=== PATIENT | male | born 1940 | race Caucasian/White ===

== ENCOUNTER → 2020-05-13 13:56 | Outpatient (CLI) | payer MEDICARE, SELFPAY ==
--- NOTE | ~2020-05-13 | XR_ITS ---
EXAMINATION: XR abdomen/kub 1V INDICATION: Calculus of the kidney TECHNIQUE: Supine views of the abdomen were obtained on 2 radiographs. COMPARISON: 06/28/2019 FINDINGS: No definite urolithiasis is identified. There are phleboliths of the pelvis. The bowel gas pattern is normal. Cholecystectomy clips are noted in the right upper quadrant. Surgical staple lines are noted in the sigmoid colon and rectum as well as the right upper quadrant. There are changes of mesh ventral hernia repair. Severe lumbar spondylosis is noted. There are airspace opacities of the v isualized lung bases. IMPRESSION: 1. No definite urolithiasis identified. 2. Bibasilar airspace opacities, consistent with atelectasis versus pneumonia. Reviewed, dictated and finalized at location A. IER PACKER
== END ==
PROVIDERS: PCP Internal Medicine; Visit Provider Internal Medicine Nephrology
DX: N20.0 Calculus of kidney (principal); R92.8 Other abnormal and inconclusive findings on diagnostic imaging of breast
CPT/HCPCS: 74018

== ENCOUNTER 2021-10-18 08:57 | Outpatient (CLI) | payer MEDICARE, SELFPAY ==
--- NOTE | ~2021-10-18 | XR_ITS ---
EXAMINATION: XR chest 2V Exam Date/Time: 10/18/2021 9:10 CDT CLINICAL HISTORY: calculus of kidney Comparison: 04/22/2017. RESULT: Lines, tubes, and devices: Partially visualized uncomplicated appearing right shoulder arthroplasty. Cholecystectomy clips. Lungs and pleura: Senescent changes. Flattened diaphragms as can be seen with emphysema. Cardiomediastinal silhouette: Stable cardiomediastinal silhouette. Other: No acute osseous or upper abdominal finding. IMPRESSION: No acute cardiopulmonary process Reviewed, dictated and finalized at location K.
--- NOTE | ~2021-10-18 | XR_ITS ---
EXAM: XR abdomen/kub 1V HISTORY: calculus of kidney COMPARISON: 05/13/2020. FINDINGS: Normal bowel gas pattern. No organomegaly. Cholecystectomy clips. Anastomotic sutures over the right colon, sigmoid, and rectum. Soft tissue anchors project over the mid and lower abdomen pel willie phleboliths. Degenerative lumbar and hip changes, otherwise the regional bones and soft tissues n ormal for age. IMPRESSION: No radiographic evidence of nephrolithiasis. Reviewed, dictated and finalized at location K.
== END 2021-10-18 08:58 | disposition home or self-care (01) ==
PROVIDERS: PCP Internal Medicine; Visit Provider Internal Medicine Nephrology
DX: N20.0 Calculus of kidney (principal); R09.89 Other specified symptoms and signs involving the circulatory and respiratory systems
CPT/HCPCS: 71046; 74018

== ENCOUNTER → 2021-10-21 10:18 | Outpatient (REF) | payer MEDICARE, SELFPAY | LOC: ANHLAB 10:18 | PROVIDERS: PCP Internal Medicine; Visit Provider Nurse Practitioner | DX: L57.0 Actinic keratosis (principal) | CPT/HCPCS: 88305 ==

== ENCOUNTER 2022-12-30 08:29 | Emergency (ER) | payer MEDICARE, SELFPAY ==
--- NOTE | 2022-12-30 08:33 | ED.SKABFB ---
HPI - Skin/Abscess/Foreign Bdy General Chief complaint: Skin/Abscess/Foreign Body Stated complaint: SORE ON LEFT ANKLE Time Seen by Provider: 12/30/22 08:33 Source: patient Mode of arrival: ambulatory Limitations: no limitations History of Present Illness HPI narrative: Angel is an 82-year-old male patient presenting to the clinic today with complaints of a sore/wound to his left ankle x2 months. He reports the sore does not seem to want to heal. Has been applying triple antibiotic ointment to it. He wears shoes without socks and it appears that his shoe is rubbing on his ankle where the sore is located Related Data Home Medications Medication Instructions Recorded Confirmed gabapentin 300 mg capsule 300 mg PO TID 04/17/19 12/30/22 allopurinol 100 mg tablet 100 mg PO DAILY 04/21/19 12/30/22 brinzolamide 1 %-brimonidine 0.2 % 1 drop ophthalmic (eye) TID 04/21/19 12/30/22 eye drops,suspension (Simbrinza) carbidopa 25 mg-levodopa 250 mg 1 tablet PO QID 04/21/19 12/30/22 tablet finasteride 5 mg tablet 5 mg PO DAILY 04/21/19 12/30/22 lactobacillus combination no.8 3 3,000 mmu cells PO DAILY 04/21/19 12/30/22 billion cell capsule (Adult Probiotic) mirtazapine 15 mg tablet 15 mg PO DAILY 04/21/19 12/30/22 multivitamin (Multiple Vitamins 1 tablet PO DAILY 04/21/19 12/30/22 tablet) omega-3 fatty acids 1,000 mg 1,000 mg PO DAILY 04/21/19 12/30/22 capsule (Fish Oil Concentrate) travoprost 0.004 % eye drops 1 drop ophthalmic (eye) QPM 04/21/19 12/30/22 (Travatan Z) Allergies Allergy/AdvReac Type Severity Reaction Status Date / Time Penicillins Allergy Unknown Rash Verified 12/30/22 08:46 Review of Systems Review of Systems: Pertinent positives per HPI. Patient denies any fever, chills, rash, headache, visual changes, dizziness, cough, runny nose, sore throat, shortness of breath, chest pain, palpitations, nausea, vomiting, diarrhea, constipation, abdominal pain, or any urinary issues. PMFSH Past Medical History Medical History Anemia Arthritis BPH (benign prostatic hyperplasia) Degenerative joint disease of knee Eczema HLD (hyperlipidemia) HTN (hypertension) Kidney stones Parkinsons Psoriasis Right knee pain SBO (small bowel obstruction) Skin cancer Sleep disorder Ulcerative colitis Surgical History Surgical History History of appendectomy History of colon resection History of lithotripsy Family History Family History Mother Hypertension Grandparent Acute myocardial infarction, Onset Age: 90 Cerebrovascular accident, Onset Age: 85 Carcinoma of colon Father Family history unknown, Onset Age: 91 Social History Social History Smoking status: Never smoker Second hand tobacco smoke exposure: No Alcohol intake: never Substance use: never Substance use type: does not use Lack of Transportation: No Lack of Food: Never True Current Housing: I Have Housing Concerned About Future Housing: No Difficulty Paying Gas/Electric Bills: No Difficulty Paying for Meds: No Currently Unemployed: No Education: High School Diploma/GED Difficulty w/ Childcare or Family Care: No Occupation/Education: retired Gender identity (if verbalized by the patient): Male Comments At the time of my signature, I reviewed and agree with the nursing past medical, surgical, social, and family history. There is no relevant family history pertinent to the patient complaint. Exam Narrative: General: Well-developed, well nourished, in no apparent distress Head: Normocephalic, atraumatic. Cardio: Regular rate and rhythm, s1 and s2 normal, no murmur appreciated. Resp: Clear to auscultation bilaterally, no rhonchi
[2022-12-30 08:38] VITALS: BP 137/82; PULSE 65; RESP 20; TEMP 36.6; O2SAT 100
== END 2022-12-30 08:53 | disposition home or self-care (01) ==
PROVIDERS: Emergency Provider Nurse Practitioner Family; PCP Family Medicine
DX: S91.002A Unspecified open wound, left ankle, initial encounter (principal); X58.XXXA Exposure to other specified factors, initial encounter; M19.90 Unspecified osteoarthritis, unspecified site; N40.0 Benign prostatic hyperplasia without lower urinary tract symptoms; E78.5 Hyperlipidemia, unspecified; I10 Essential (primary) hypertension; G20 Parkinson's disease; L40.9 Psoriasis, unspecified; Z85.828 Personal history of other malignant neoplasm of skin
CPT/HCPCS: 99213; G0463

== ENCOUNTER 2023-05-20 16:16 | Outpatient (CLI) | payer MEDICARE, SELFPAY ==
--- NOTE | ~2023-05-20 | XR_ITS ---
EXAMINATION: XR abdomen/kub 1V DATE: 05/20/2023 16:43 INDICATION: Nephrolithiasis TECHNIQUE: A supine view of the abdomen on 2 radiographs was obtained. COMPARISON: 10/18/2021 FINDINGS: There is some gas scattered throughout the colon. No dilated loops of gas-filled bowel to suggest obs truction. Postoperative changes including cholecystectomy clips in right upper quadrant, anastomotic suture lines in the right lower quadrant and pelvis and multiple metallic coils projecting over the l ower abdomen and upper pelvis consistent with prior ventral hernia mesh repair. A few unchanged phleb oliths in the pelvis. Splenic artery calcifications in the left upper quadrant No other suspicious ca lcifications to suggest nephrolithiasis. Opacities in the bilateral lower lung zones, left greater th an right which could represent atelectasis, pneumonia, pulmonary edema or some combination thereof. S evere lumbar spondylosis. IMPRESSION: 1. No evident urolithiasis. 2. Opacities at the bilateral lower lung zones, left greater than right which could represent atelect asis, pneumonia, pulmonary edema or some combination thereof. Reviewed, dictated and finalized at location A. E CIRCUIT OPERATOR IMPRESSION: 1. No evident urolithiasis. 2. Opacities at the bilateral lower lung zones, left greater than right which c ould represent atelectasis, pneumonia, pulmonary edema or some combination ther eof.
== END 2023-05-20 16:17 | disposition home or self-care (01) ==
PROVIDERS: PCP Family Medicine; Visit Provider Internal Medicine Nephrology
DX: N20.0 Calculus of kidney (principal); R91.8 Other nonspecific abnormal finding of lung field
CPT/HCPCS: 74018

== ENCOUNTER 2023-05-21 14:05 | Outpatient (CLI) | payer MEDICARE, SELFPAY ==
--- NOTE | ~2023-05-21 | XR_ITS ---
EXAMINATION: XR chest 2V DATE: 05/21/2023 14:21 INDICATION: Abnormal abdominal radiographs TECHNIQUE: PA and lateral views of the chest are obtained. COMPARISON: 05/20/2023 FINDINGS: Bibasilar airspace opacities, left greater than right, persist without significant change. No pleural effusion or pneumothorax. The cardiomediastinal silhouette is normal. There is severe thor acic spondylosis. There are changes of right total shoulder arthroplasty. IMPRESSION: 1. Bibasilar airspace opacities, left greater than right, consistent with atelectasis versus pneumoni a. Reviewed, dictated and finalized at location B. OTYPE MACHINE OPERATOR IMPRESSION: 1. Bibasilar airspace opacities, left greater than right, consistent with atele ctasis versus pneumonia.
== END 2023-05-21 14:06 | disposition home or self-care (01) ==
PROVIDERS: PCP Family Medicine; Visit Provider Internal Medicine Nephrology
DX: R93.5 Abnormal findings on diagnostic imaging of other abdominal regions, including retroperitoneum (principal)
CPT/HCPCS: 71046

== ENCOUNTER 2023-06-11 14:35 | Outpatient (CLI) | payer MEDICARE, SELFPAY ==
--- NOTE | ~2023-06-11 | CT_ITS ---
EXAMINATION:CT diagnostic chest wo con DATE: 06/11/2023 14:54 INDICATION: Other specified symptoms and signs involving the lungs. Fluid in the lungs. TECHNIQUE: Computed tomography (CT) of the chest was performed without intravenous contrast. Automate d exposure control and iterative reconstruction technique were employed. The dose-length product (DLP ) was 140.37 mGy-cm. COMPARISON: CT abdomen and pelvis 03/27/2018, chest 2 views 05/21/2023 FINDINGS: There is widespread peripheral septal thickening in the lungs associated with relatively mi ld groundglass opacities. There are areas of honeycombing bilaterally. There is bronchiectasis in the lungs with an inferior predominance. No pleural effusion. The heart size is normal. There are webber ry artery calcifications. No pericardial effusion. Aortic atherosclerosis is noted. There are changes of cholecystectomy. There is chronic moderate intrahepatic biliary duct dilatation. There is a 13 mm cyst in right kidney. There is severe thoracic spondylosis. There is thoracic kyphosis and dextrosco liosis. There is a total right shoulder arthroplasty. IMPRESSION: 1. Chronic interstitial lung disease in a pattern of usual interstitial pneumonia (UIP). Reviewed, dictated and finalized at location E. GER TRACK IMPRESSION: 1. Chronic interstitial lung disease in a pattern of usual interstitial pneumon ia (UIP).
== END 2023-06-11 14:36 | disposition home or self-care (01) ==
PROVIDERS: PCP Family Medicine; Visit Provider Family Medicine
DX: R09.89 Other specified symptoms and signs involving the circulatory and respiratory systems (principal); G20.A1 Parkinson's disease without dyskinesia, without mention of fluctuations
CPT/HCPCS: 71250

== ENCOUNTER 2023-06-29 09:58 | Outpatient (CLI) | payer MEDICARE, SELFPAY ==
[2023-06-29 11:58] LABS: Rheumatoid Factor < 12.0 IU/ML (<12)
--- NOTE | 2023-06-29 15:42 | WPDPFTINT ---
PFT Procedure Performed PFT Procedure Performed Spirometry with Pre/Post Bronchodilator Plethysmography (Lung Vol) Diffusing Cap (DLCO) Flow Vol Loop PFT Interpretation Lung volumes were measured with the body plethysmography method. The diminished total lung capacity is indicative of mild restrictive respiratory disease. Spirometry showed normal expiratory flow rates and a normal FEV1 to FVC ratio of 82%. Following administration of a bronchodilator there was no significant increase in expiratory flow rates. Lung diffusion capacity is moderately reduced at 42% predicted. The flow-volume loop is unremarkable. Impression: Mild restrictive respiratory disease. Moderately reduced lung diffusion capacity.
--- NOTE | 2023-06-29 16:08 | WPDSIXMINUTE ---
Six Minute Walk Procedure Procedure Performed Pulmonary Stress Test (6 min walk) Six Minute Walk Six Minute Walk: This 6 minute walk test was carried out with the patient breathing ambient air. The baseline pre walk oxyhemoglobin saturation was 95%. The patient walked 335 m with no stops during testing. During the walk the oxyhemoglobin saturation remained in the range of 90% to 95%. Impression: No evidence of oxyhemoglobin desaturation on this testing.
[2023-07-02 09:23] LABS: Myeloperoxidase Ab <1.0 AI (<1.0)
[2023-07-04 10:04] LABS: Anti Cyclic Citrullinated Pept <16 Units (<20)
[2023-07-08 20:48] LABS: JO-1 AB <11 SI (<11); MI-2 Alpha Ab <11 SI (<11); MI-2 Beta Ab <11 SI (<11); NXP-2 AB <11 SI (<11); TIF1 Gamma Ab <11 SI (<11)
== END 2023-06-29 09:59 | disposition home or self-care (01) ==
PROVIDERS: PCP Family Medicine; Visit Provider Internal Medicine Pulmonary Disease
DX: J61 Pneumoconiosis due to asbestos and other mineral fibers (principal); J84.9 Interstitial pulmonary disease, unspecified
CPT/HCPCS: 36415; 84182; 86036; 86038; 86200; 86430; 94060; 94618; 94726; 94729

== ENCOUNTER 2024-03-21 11:52 | Outpatient (CLI) | payer MEDICARE, SELFPAY ==
--- NOTE | ~2024-03-21 | XR_ITS ---
XR abdomen/kub 1V Ordering provider: Syed Harrison MD History: . N20.0 - Calculus of kidney FU . Comparison: May 20, 2023 FINDINGS: BOWEL: Distended colon with gases with a maximum measurement seen 11.4 cm. Follow-up advised.. Nonobs tructive bowel gas pattern. ORGANOMEGALY: None. SIGNIFICANT PATHOLOGIC CALCIFICATIONS: None. OTHER: No free air is seen under the diaphragm. Degenerative spine. IMPRESSION: NO ACUTE ABDOMINAL FINDINGS. Distended colon with gases with maximum measurement 11.4 cm.. Follow-up advised. Reviewed, dictated and finalized at location A. IMPRESSION: NO ACUTE ABDOMINAL FINDINGS. Distended colon with gases with maximum measurement 11.4 cm.. Follow-up advised .
== END 2024-03-21 11:53 | disposition home or self-care (01) ==
LOC: ANHIMG 11:54
PROVIDERS: PCP Family Medicine; Visit Provider Internal Medicine Nephrology
DX: N20.0 Calculus of kidney (principal)
CPT/HCPCS: 74018

== ENCOUNTER 2024-04-21 09:45 | Outpatient (CLI) | payer MEDICARE, SELFPAY ==
--- NOTE | ~2024-04-21 | XR_ITS ---
EXAMINATION: XR lumbar spine min 4V DATE: 04/21/2024 10:00 INDICATION: Dorsalgia TECHNIQUE: Anteroposterior, lateral, and bilateral oblique views of the lumbar spine, and cone-down l ateral view of the lumbosacral junction were obtained. COMPARISON: None. FINDINGS: L5 is partially sacralized with degenerative change at the articulation between the L5 right transver se process and the sacrum. 3 mm anterolisthesis L2 on L3 and 5 mm anterolisthesis L3 on L4. Chronic a ppearing likely physiologic mild anterior wedging at T10 and T11. Severe disc height loss at L3-L4 an d L4-L5, moderate disc height loss at and T11-T12, L1-L2 and L5-S1 and mild disc height loss at T12-L 1 and L2-L3. Multilevel severe mid to lower lumbar facet osteoarthritis. Moderate bilateral facet ost eoarthritis. Postoperative change of prior ventral hernia mesh repair. Cholecystectomy clips in right upper quadrant. Suture lines in the pelvis. IMPRESSION: 1. Severe lumbar spondylosis. Reviewed, dictated and finalized at location B. ERENCE ASSISTANT
== END 2024-04-21 09:46 | disposition home or self-care (01) ==
LOC: GOSHIMG 09:45
PROVIDERS: PCP Family Medicine; Visit Provider Family Medicine
DX: M43.06 Spondylolysis, lumbar region (principal)
CPT/HCPCS: 72110

== ENCOUNTER 2024-06-06 16:10 | Emergency (ER) | payer MEDICARE, SELFPAY ==
[2024-06-06 16:26] VITALS: BP 136/92; PULSE 93; RESP 16; TEMP 35.7; O2SAT 97
--- NOTE | 2024-06-06 17:14 | ED_ITS ---
HPI - Head Injury General Chief complaint: Wound/Laceration Stated complaint: face fall /RT Side Time Seen by Provider: 06/06/24 16:35 Source: patient, family, RN notes reviewed and old records reviewed Mode of arrival: wheelchair (placed in wheelchair on arrival to clinic) Limitations: no limitations History of Present Illness HPI Narrative: 84 year old male accompanied by presents to express care with complaints of patient falling [place] area at airport today after they had been dropped off by the shuttle to their car. states that her car wouldn't start and she walked to where the attendant was at parking lot area for some help and while she did that he got out of the car and fell hitting the right side of his face on asphalt. states that patient did not have any loss of consciousness. Patient has history of Parkinson disease.Patient has laceration to the right eyebrow lateral forehead region with some oozing of blood.Patient is not on blood thinners. MD Complaint: other (laceration) Onset (ago): hour(s) ( states occurred at about 1300 today) Arrival Conditions: other (per wheelchair) Mechanism of Injury: fall Place: outdoors Loss of Consciousness: no Location of injury: face Severity: moderate Related Data Home Medications ?Medication ?Instructions ?Recorded ?Confirmed ?Last Taken ?Type gabapentin 300 mg capsule 300 mg PO TID 04/17/19 06/06/24 Unknown History carbidopa 25 mg-levodopa 250 mg 1 tablet PO QID 04/21/19 06/06/24 Unknown History tablet finasteride 5 mg tablet 5 mg PO DAILY 04/21/19 06/06/24 Unknown History mirtazapine 15 mg tablet 15 mg PO DAILY 04/21/19 06/06/24 Unknown History multivitamin (Multiple Vitamins 1 tablet PO DAILY 04/21/19 06/06/24 Unknown History tablet) propranolol 60 mg tablet 60 mg PO DAILY 09/21/23 06/06/24 Unknown History brinzolamide 1 %-brimonidine 0.2 % 1 drp ophthalmic (eye) BID 03/28/24 06/06/24 Unknown History eye drops,suspension (Simbrinza) cefdinir 300 mg capsule 300 mg PO Q12H 03/28/24 06/06/24 Unknown History multivitamin (Multiple Vitamins 1 tablet PO DAILY 03/28/24 04/21/24 Unknown History tablet) Vitamin D3 06/06/24 Unknown History budesonide 3 mg mg PO 06/06/24 Unknown History capsule,delayed,extended release diphenoxylate-atropine 2.5 tablet 06/06/24 Unknown History mg-0.025 mg tablet potassium chloride 10 mEq meq 06/06/24 Unknown History capsule,extended release prevagen 06/06/24 Unknown History Allergies Allergy/AdvReac Type Severity Reaction Status Date / Time Penicillins Allergy Unknown Rash Verified 06/06/24 16:29 Review of Systems Review of Systems: CONSTITUTIONAL: Denies fever, chills, or sweats. EYES: Denies visual changes, redness, or discharge.positive for laceration to the right lateral face near right eye brow with swelling and bruising. ENT: Denies rhinorrhea, congestion, sore throat, or otalgia. CARDIOVASCULAR: Denies chest pain, palpitations, or edema. RESPIRATORY: Denies cough or dyspnea. GASTROINTESTINAL: Denies abdominal pain, nausea, vomiting, or diarrhea. GENITOURINARY: Denies dysuria or hematuria. SKIN: Denies rash or itching. MUSCULOSKELETAL: Denies back pain, joint pain, or myalgia. NEUROLOGIC: Denies acute headache, numbness, or weakness. PSYCHIATRIC: Denies anxiety or depression. All systems reviewed & are unremarkable except as noted in HPI and below PMFSH Past Medical History Medical History SBO (small bowel obstruction) Degenerative joint disease of knee Skin cancer Eczema Anemia BPH (benign prostatic hyperplasia) Parkinsons Psoriasis Sleep disorder Arthritis HLD (hyperlipidemia) HTN (hypertension) Kidney stones Ulcerative colitis Right knee pain Surgical History Surgical History History of lithotripsy History of appendectomy History of colon resection Family History Family History Mother Hypertension Grandparent Acute myocardial infarction, Onset Age: 90 Cerebrovascular accident, Onset Age: 85 Carcinoma of colon Father Family history unknown, Onset Age: 91 Social History Social History Smoking status: Never smoker Second hand tobacco smoke exposure: No Alcohol intake: never Substance use: never Substance use type: does not use Do You Feel Safe in your Home?: Yes Lack of Transportation: No Lack of Food: Never True Current Housing: I Have Housing Concerned About Future Housing: No Difficulty Paying Gas/Electric Bills: No Difficulty Paying for Meds: No Currently Unemployed: No Education: High School Diploma/GED Difficulty w/ Childcare or Family Care: No Occupation/Education: retired Gender identity (if verbalized by the patient): Male Comments At time of signature, agree with nursing past medical, surgical, social and family history. There is no relevant family history pertinent to the presenting complaint Exam Narrative: GENERAL:chronic illl-appearing, well-nourished, and in no acute distress. HEAD: Normocephalic, atraumatic.facial laceration to right eyebrow region and lateral forehead from fall EYES: PERRLA and EOMI. patient able to track movement in all burrows f vision of right eye, able to move up and down eye brow and able to squeeze eye shut on command ENT: Nares clear, no rhinorrhea or epistaxis. Mucous membranes moist. NECK: Supple. no lymphadenopathy, patient is stiff in relation to Parkinson CHEST: Clear to auscultation. No respiratory distress. no cough noted SAO2 97% on room air HEART: Regular rate and rhythm. No murmur heard. Normal peripheral pulses. ABDOMEN: Soft, nontender, nondistended, normal active bowel sounds. EXTREMITIES: Normal range of motion. No edema. Patient has stiff slow movement of extremities no acute tremors noted. SKIN: Warm, dry, no rash.Laceration to the right eyebrow lateral forehead area which was sustained in fall, approximately 4 cm length and 3 sm width, irregular margins with some gaping.some oozing of blood swollen and bruised. NEURO: No focal deficits. Alert and oriented x3. cranial nerves intact with no deficit noted. Course Course Emergency Course: Patient is aware of diagnosis, understands and agrees to treatment plan.? Anticipatory guidance given.? Patient agrees to follow-up as directed and is aware of reasons to seek care at the emergency department. Portions of this record may have been created with voice recognition software Level of Care: Express Care Visit Vital Signs Vital signs: Vital Signs Temperature 35.7 C L 06/06/24 16:26 Pulse Rate 93 12/31/24 16:26 Respiratory Rate 16 06/06/24 16:26 Blood Pressure 136/92 H 06/06/24 16:26 Pulse Oximetry 97 06/06/24 16:26 Temperature 35.7 C L 06/06/24 16:26 Pulse Rate 93 06/06/24 16:26 Respiratory Rate 16 06/06/24 16:26 Blood Pressure 136/92 H 06/06/24 16:26 Pulse Oximetry 97 06/06/24 16:26 Reviewed Procedures Laceration facial: Date: 06/06/24 Time: 18:20 Site: face (eyebrow) Side (If applicable): right Size (cm): 4 Description: irregular Depth: simple, single layer Local Anesthetic: lidocaine 1% Amount of anesthesia used (mL): 3 Pre-repair: wound explored, irrigated extensively and other (wound cleanser) ====== Skin Level ====== Skin layer closed with: nylon Size (cm): 5-0 Number of sutures: 6 Technique: simple, interrupted ====== Subcutaneous Layer ====== ====== Muscle Layer ====== ====== Tendon Layer ====== Dressing: rolled 4X4 gauzed applied over wound and edges taped with paper tape wound care instructions reviewed with . MDM - Head Injury Differential Diagnosis Differential diagnosis: Likely concussion without loss of consciousness, closed head injury and other (contusion to right eye brow , laceration to right eyebrow and forehead) Medical Records Attestation: I reviewed the patient's medical records. Critical Care Time Critical Care Time Critical Care Time: No Discharge Plan Discharge Clinical Impression: Concussion with no loss of consciousness Qualifiers: Encounter type: initial encounter Qualified Code(s): S06.0X0A - Concussion without loss of consciousness, initial encounter Laceration of eyebrow, right Qualifiers: Encounter type: initial encounter Qualified Code(s): S01.111A - Laceration without foreign body of right eyelid and periocular area, initial encounter Patient Disposition: Home, Self-Care Condition: Stable Instructions: Care For Your Stitches (ED), Laceration (ED), Concussion (ED) Additional Instructions: Keep the area clean and dry No continuous water contact like dishes or swimming You may bathe and wash you hair caution with hair products or lotions Antibiotic ointment to the area 1 time daily bacitracin dressing of choice watch for infection--redness, swelling, drainage follow up with PCP for suture/staple in removal *7 days recheck with PCP if further concerns or problems follow-up in the ER if you have any vomiting headache vision changes or increased weakness or any change in level of consciousness Tylenol for pain or fever call your physician to make an appointment for follow-up If your symptoms persist, change or worsen significantly before you can contact your personal physician then please, without delay, go to the emergency department for further evaluation. Follow-up with PCP in 7-10 days or sooner if needed Follow up with PCP soon in regards to your blood pressure which is elevated above threshold for referral. Blood pressure above 120/80 may indicate pre- hypertension. 136/92 ICe pack to right eyebrow forehead region 4-6 times daily for swelling Patient Language: Polish Prescriptions: New cefdinir 300 mg capsule 300 mg PO Q12H Qty: 14 0RF No Action potassium chloride 10 mEq capsule, extended release diphenoxylate-atropine 2.5-0.025 mg tablet budesonide 3 mg capsule,delayed,extend.release PO Vitamin D3 prevagen gabapentin 300 mg capsule 300 mg PO TID multivitamin [Multiple Vitamins] Tablet 1 tablet PO DAILY cefdinir 300 mg capsule 300 mg PO Q12H carbidopa-levodopa 25-250 mg tablet 1 tablet PO QID mirtazapine 15 mg tablet 15 mg PO DAILY multivitamin [Multiple Vitamins] Tablet 1 tablet PO DAILY finasteride 5 mg tablet 5 mg PO DAILY Simbrinza 1-0.2 % drops,suspension 1 drp EACH EYE BID propranolol 60 mg tablet 60 mg PO DAILY allopurinol 100 mg tablet 100 mg PO DAILY Qty: 90 3RF hydrochlorothiazide 25 mg tablet 25 mg PO DAILY Qty: 90 3RF tamsulosin 0.4 mg capsule See Rx Instructions .ROUTE .COMPLEX Qty: 90 1RF Dose Instruction: TAKE 1 CAPSULE BY MOUTH EVERY DAY 1/2 HOUR FOLLOWING THE SAME MEAL EACH DAY Rx Instructions: TAKE 1 CAPSULE BY MOUTH EVERY DAY 1/2 HOUR FOLLOWING THE SAME MEAL EACH DAY Follow-up/Referrals: Humphrey Elise, [Primary Care Provider] - Time of Disposition: 19:17 Quality Mikey Coma Scale Eyes: Open Verbal: Oriented and Alert Motor: Follows Commands Mikey Coma Total Score: 15
== END 2024-06-06 19:24 | disposition home or self-care (01) ==
PROVIDERS: Emergency Provider Registered Nurse; PCP Family Medicine
DX: S01.111A Laceration without foreign body of right eyelid and periocular area, initial encounter (principal); W19.XXXA Unspecified fall, initial encounter; N40.0 Benign prostatic hyperplasia without lower urinary tract symptoms; G20.A1 Parkinson's disease without dyskinesia, without mention of fluctuations; I10 Essential (primary) hypertension; E78.5 Hyperlipidemia, unspecified; M19.90 Unspecified osteoarthritis, unspecified site; Z85.828 Personal history of other malignant neoplasm of skin
CPT/HCPCS: 12013; 99213; G0463; J2003

== ENCOUNTER 2024-08-08 11:15 | Outpatient (RCR) | payer MEDICARE, SELFPAY ==
--- NOTE | 2024-05-23 16:27 | OPREHPOC ---
Outpatient Therapy Plan of Care This is a Multidisciplinary Plan of Care that may contain components documented by all disciplines (PT, OT, and ST.) PT Problem 1 PT Problem #1 Knowledge Deficit PT Goal 1 Goal / Goal Update 1. Pt to be IND with issued HEP Target Visit 10 PT Problem 2 PT Problem #2 Impaired Balance PT Goal 1 Goal / Goal Update 1. Pt to improve Tinetti score from 19/28 to 24/28 . 2. Pt to demonstrate controlled start/stop during ambulation. PT Problem 3 PT Problem #3 Pain PT Goal 1 Goal / Goal Update 1. Pt to report back pain no greater than 3/10 in the last week. Target Visit 10
--- NOTE | 2024-05-23 16:27 | PTOPEVAL1 ---
Assessment and note entered by Mike Gutierrez, PT, DPT Evaluation Information Assessment Status Evaluation Diagnosis low back and R knee pain ICD-10 Condition Codes (PT) Pain in low back M54.50,Pain in right knee M25.561 ,Difficulty Walking R26.2,Abnormalities of gait and mobility R26.9,Weakness R53.1 Subjective Information Pt reports a long history of back and R knee pain, he also has a history of Parkinson's. Imaging shows severe DJD in his R knee and severe lumbar spondylosis. States his knee limits how long he can stand, and his back limits how long he can sit . Pt states he has [address] to take care of. Pt reports a fear of falling d/t his parkinson 's but has had no recent falls. Reported Pain Level Pain Score 1,2: Self Report Assessment PT Clinical Summary Pt presents to therapy today for her initial evaluation with a diagnosis of R knee pain, low back pain, and a hx of Parkinson's. Pt demonstrates decreased ankle and hip strength, decreased static standing balance, and is at an increased risk for falls based on standardized testing. Skilled therapy services are indicated to address deficits noted above, to improve lumbar mobility, to improve functional mobility, and to minimize fall risk. Plan of Care Interventions Electrical Stimulation,Gait Training,Hot Pack/Cold Pack,Manual Therapy,Neuro Re-education,Patient/ Caregiver Education,Therapeutic Activities, Therapeutic Exercise PT Services Indicated Yes Treatment Frequency and 2x/wk for 10 visits Duration These treatments will address the objective and functional deficits as defined above. The patient will be advanced safely and appropriately in order for the patient to progress towards his/her prior level of function. Additional exercises will be introduced and as well as a comprehensive home exercise program upon discharge, if needed, ?to ensure carryover of functional gains achieved in the clinic. This treatment plan has been reviewed and agreement upon by the patient.
--- NOTE | 2024-06-06 10:02 | PCPTNOTE ---
Patient called to cancel due to having reservations at this time.
--- NOTE | 2024-06-13 08:23 | PCPTNOTE ---
Patient called to cancel due to having an infusion.
--- NOTE | 2024-06-16 10:46 | PCPTNOTE ---
Patient cancelled this visit secondary to weather conditions.
--- NOTE | 2024-07-13 14:11 | OPREHPOC ---
Outpatient Therapy Plan of Care This is a Multidisciplinary Plan of Care that may contain components documented by all disciplines (PT, OT, and ST.) PT Problem 1 PT Problem #1 Knowledge Deficit PT Goal 1 Goal / Goal Update 1. Pt to be IND with issued HEP Target Visit 10 Progress Met PT Problem 2 PT Problem #2 Impaired Balance PT Goal 1 Goal / Goal Update 1. Pt to improve Tinetti score from 19/28 to 24/28 . 2. Pt to demonstrate controlled start/stop during ambulation. 07/13/24: 1. met, 2. progressing Progress Partially Met PT Problem 3 PT Problem #3 Pain PT Goal 1 Goal / Goal Update 1. Pt to report back pain no greater than 3/10 in the last week. 07/13/24: 1. progressing, 4/10 Target Visit 10
--- NOTE | 2024-07-13 14:11 | PTOPPROG ---
Assessment and note entered by Mike Gutierrez, PT, DPT Evaluation Information Assessment Status Progress Diagnosis low back and R knee pain ICD-10 Condition Codes (PT) Pain in low back M54.50,Pain in right knee M25.561 ,Difficulty Walking R26.2,Abnormalities of gait and mobility R26.9,Weakness R53.1 Subjective Information Pt states his balance is still if-y . He reports good compliance with his HEP but reports minimal improvement in his day to day activities. Pt also does not reports any improvements in his standing tolerance. Assessment PT Clinical Summary Pt presents to therapy today for his progress report following 9 visits to treat his diagnosis of R knee pain, low back pain, and a hx of Parkinson's. Pt demonstrates improved static standing balance, and improve hip strength. He continues to have back pain limiting his ability to stand for periods of time. Continuations of skilled therapy services are indicated to continue progressing towards goals, to improve lumbar mobility, to improve functional mobility, and to minimize fall risk. Plan of Care Interventions Electrical Stimulation,Gait Training,Hot Pack/Cold Pack,Manual Therapy,Neuro Re-education,Patient/ Caregiver Education,Therapeutic Activities, Therapeutic Exercise PT Services Indicated Yes Treatment Frequency and 1x/wk for 6 visits Duration These treatments will address the objective and functional deficits as defined above. The patient will be advanced safely and appropriately in order for the patient to progress towards his/her prior level of function. Additional exercises will be introduced and as well as a comprehensive home exercise program upon discharge, if needed, ?to ensure carryover of functional gains achieved in the clinic. This treatment plan has been reviewed and agreement upon by the patient.
--- NOTE | 2024-07-20 14:19 | PCPTNOTE ---
Patient no showed to appointment this date. Called and left voicemail.
--- NOTE | 2024-07-26 09:29 | PCPTNOTE ---
Patient called to cancel therapy due to weather.
--- NOTE | 2024-08-08 12:04 | PTOPDC ---
Assessment and note entered by Mike Gutierrez, PT, DPT Evaluation Information Assessment Status discharge Diagnosis low back and R knee pain ICD-10 Condition Codes (PT) Pain in low back M54.50,Pain in right knee M25.561 ,Difficulty Walking R26.2,Abnormalities of gait and mobility R26.9,Weakness R53.1 Subjective Information Pt state it feels like things are progressing well . He states he continues to have issues walking backwards to open the door for his . He states it feels like his day to day mobility and balance has improved. States his back pain is also still very manageable. Reported Pain Level Pain Score 0: Self Report Assessment PT Clinical Summary Pt presents to therapy today for his progress report following 12 visits to treat his diagnosis of R knee pain, low back pain, and a hx of Parkinson's. Pt demonstrates improved static standing balance, and improve hip strength. He has made good progress with his static and dynamic balance. His HEP was progressed. Pt would like to be done with therapy services at this time.
== END 2024-08-08 14:15 | disposition home or self-care (01) ==
LOC: ANHGOSHPT 11:15
PROVIDERS: PCP Family Medicine; Visit Provider Family Medicine
DX: M54.50 Low back pain, unspecified (principal); G20.A1 Parkinson's disease without dyskinesia, without mention of fluctuations
CPT/HCPCS: 97110; 97112; 97161; 97530; 97750

== ENCOUNTER 2024-09-09 07:09 | Outpatient (CLI) | payer MEDICARE, SELFPAY ==
--- NOTE | ~2024-09-09 | US_ITS ---
Limited Abdominal Sonogram: Real-time sonographic imaging of the right upper quadrant was performed. Clinical History: Abnormal serum enzyme levels Findings: The liver appears normal with no evidence of mass lesion or bile duct dilatation. Main por mallory vein demonstrates normal direction of flow. The gallbladder is absent, compatible prior cholecyst ectomy. The common bile duct measures 24 mm. The visualized pancreas, aorta, and IVC are unremarkabl e. Impression: Marked common bile duct dilatation to 25 mm. This is probably without significant change since prior abdominal pelvic CT dated 07/28/2017, therefore compatible with chronic change. This may be related to prior cholecystectomy. Reviewed, dictated and finalized at location M. Impression: Marked common bile duct dilatation to 25 mm. This is probably without significa nt change since prior abdominal pelvic CT dated 07/28/2017, therefore compatible with chronic change. This may be related to prior cholecystectomy.
== END 2024-09-09 07:10 | disposition home or self-care (01) ==
LOC: MICIMG 07:11
PROVIDERS: Visit Provider Nurse Practitioner
DX: R74.8 Abnormal levels of other serum enzymes (principal)
CPT/HCPCS: 76705

== ENCOUNTER 2025-01-23 09:47 | Outpatient (CLI) | payer MEDICARE, SELFPAY ==
--- OUTSIDE RECORDS SUMMARY | 2010-02-03 03:45 | XMS_ITS | Continuity of Care Document ---
Author Organization [facility] Address [address] [place] [address] Phone Care Team Providers Care Floor Clerk Name Role Phone Rere Kaye Unavailable Unavailable Procedures Procedure Date Visual Field Examination(s) Office/outpatient Visit, Est Office/outpatient Visit, Est Fundus Photography W/ Report Visual Field Examination(s) Office/outpatient Visit, Est Office/outpatient Visit, Est Fundus Photography W/ Report Office/outpatient Visit, Est Visual Field Examination(s) Eye Exam & Treatment Office Consultation Advance Directives Directive Yes / No Effective Date File Name No Information Encounters Encounter Description Practice Location Reason(s) For Visit Diagnoses Date Provider Providers Copied on Encounter [facility], [id number] [place] [address] [address], [place], [place], [id number], [place] tel:[phone] [facility] No Information 0-201 0 Mikki Jernigan. [address], [place], [address], [place]. tel:[phone] Referring Provider: Rere Dick, [address], [place], [address]. tel:[phone] Office/outpati ent Visit, Est [facility], [id number] [place] [address] [address], [place], [place], [id number], [place] tel:[phone] [facility] No Information 7-201 0 Mikki Jernigan. [address], [place], [place], [facility], . tel:[phone] Referring Provider: [address], [place], [address]. tel:[phone] Office/outpati ent Visit, [facility], [address] [place] [address] [address], [place], [place], [id number], tel:[phone] [facility] No Information 2200 9 Mikki Jernigan. [address] , [address], [place], [place], [facility], . tel:[phone] Referring Provider: [address], [place], [place], [facility]. tel:[phone] [facility], [address] [place] [address] [address], [place], [place], [id number], tel:[phone] [facility] No Information 200 9 Mikki Jernigan. [address] , [address], [place], [facility], . tel:[phone] Referring Provider: Rere Dick, [address], [place], [facility]. tel:[phone] Office/outpati ent Visit, [facility], [address] [place] [address] [address], [place], [place], [id number], tel:[phone] [facility] No Information 200 9 Mikki Jernigan. [address] , [address], [place], [facility], . tel:[phone] Referring Provider: [address], [place], [address]. tel:[phone] Office/outpati ent Visit, [facility], [address] [place], [place] [address] [address], [place], [place], [id number], [place] tel:[phone] [facility] No Information 8 Mikki Jernigan. [address] , [address], [place], [facility], . tel:[phone] Referring Provider: [address], [place], [address]. tel:[phone] Office/outpati ent Visit, Est [facility], [address] [place] [address] [address], [place], [place], [id number], [place] tel:[phone] [facility] No Information 8 Mikki Jernigan. [address] , [address], [place], [facility], [place]. tel:[phone] Referring Provider: [address], [place], [address]. tel:[phone] [facility], [address], [place], [place], [id number], [place] tel:[phone] [facility] No Information 8 Mikki Jernigan. [address] , [address], [place], [facility], [place]. tel:[phone] Referring Provider: Rere Dick, [address], [place], [facility]. tel:[phone] [facility], [address] [place] [address] [address], [place], [place], [address], [place] tel:[phone] [facility] No Information 8 Mikki Jernigan. [address] , [address], [place], [facility], [place]. tel:[phone] Referring Provider: [address], [place], [address]. tel:[phone] Office Consultation [facility], [address], [place], [place], [id number], [place] tel:[phone] [facility] No Information 200 7 Kaye Rere. [address] , [address], [place], [address], [place]. tel:[phone] Referring Provider: Pa Larsen, [address] , [place], [address]. tel:[phone] Family History Family Member Type Diagnosis Age At Onset No Information Payers Payer name Insurance type Covered constitution party ID Authoriza tion(s) No Information Social History Type Description Quantity Date Captured Comments Sex Male Smoking Status No Information Chief Complaint And Reason For Visit No Information Reason For Referral Reason For Referral No Information History Of Present Illness Encounter Date Complaint History Of Prese nt Illness No Information Functional Status Date Functional Assessmen t No Information Instructions Date Instruction Additional Infor mation No Information Assessments Type Assessment Date No Information Patient Care Teams Name Effective Dates (start - stop) Status Members No Information
--- OUTSIDE RECORDS SUMMARY | 2024-09-28 10:15 | XMS_ITS | Continuity of Care Document ---
Author Organization [facility] [employer] [facility] Address [address] 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 Role Phone Anuj Chahal MD Unavailable Unavailable Allergies, Adverse Reactions, Alerts Substance Reaction Status Criticality No Known Allergies Active No Inform ation Medications Medication Instructions Dosage Effective Dates (start - stop) Status Comments Simbrinza 1 %-0.2 % eye drops,suspension INSTILL 1 DROP INTO EACH EYE TWICE DAILY - Active latanoprost 0.005 % eye drops instill 1 drop by ophthalmic route every day into both eyes in the evening 1 drop - Active prevagen BUCCAL TABLET as needed - Act krystin allopurinol 300 mg tablet take 1 tablet by oral route every day 300 MG - Active finasteride 5 mg tablet take 1 tablet by oral route every day 5 MG - Active gabapentin 300 mg capsule take 3 capsule by oral route 2 times every day 900 MG - Active hydrochlorothiazide 25 mg tablet take 1 tablet by oral route every day 25 MG - Active mirtazapine 15 mg tablet take 1 tablet b y oral route every day before bedtime 15 MG - Active rosuvastatin 5 mg tablet take 1 tablet b y oral route every day 5 MG - Active Imodium A-D 2 mg capsule take 2 capsule by oral route after 1st loose stool, followed by 1 capsule after each subsequent loose stool not to exceed 16 mg/day 4 MG - Active carbidopa 25 mg-levodopa 100 mg tablet take 1 tablet by oral route 3 times every day 1.00 tablet - Active FISH OIL (unknown strength) Not Available - Active multivitamin tablet take 1 tablet by oral route every day with food - Active potassium chloride ER 20 mEq tablet,extended release take 1 tablet by oral route every day with food 20 MEQ - Active PROBIOTIC (unknown strength) Not Available - Active propranolol ER 60 mg capsule,24 hr,extended release take 2 capsule by oral route every day 120 MG - Active tamsulosin ER 0.4 mg capsule,extended release 24 hr take 1 capsule by oral route every day 1/2 hour following the same meal each day 0.4 MG - Active Simbrinza 1 %-0.2 % eye drops,suspension INSTILL 1 DROP INTO EACH EYE TWICE DAILY - No Longer Active Procedures Procedure Date VISUAL FIELD- EXTENDED GDX Optic Nerve OFFICE/OUTPATIENT VISIT, EST FUNDUS PHOTOGRAPHY VISUAL FIELD- EXTENDED OFFICE/OUTPATIENT VISIT, EST GDX Optic Nerve CORNEAL PACHYMETRY OFFICE/OUTPATIENT VISIT, EST EYE EXAM & TREATMENT GDX Optic Nerve EYE EXAM ESTABLISHED PAT VISUAL FIELD- EXTENDED OFFICE/OUTPATIENT VISIT, EST GDX Optic Nerve OFFICE/OUTPATIENT VISIT, EST VISUAL FIELD- EXTENDED OFFICE/OUTPATIENT VISIT, EST POSTOP FOLLOW-UP VISIT SLT Oct OFFICE/OUTPATIENT VISIT, EST Oct GDX Optic Nerve Oct CORNEAL PACHYMETRY GONIOSCOPY Oct OFFICE/OUTPATIENT VISIT, EST VISUAL FIELD- EXTENDED POSTOP FOLLOW-UP VISIT POSTOP FOLLOW-UP VISIT CATARACT SURG W/IOL, 1 STAGE POSTOP FOLLOW-UP VISIT POSTOP FOLLOW-UP VISIT CATARACT SURGERY, COMPLEX EYE EXAM & TREATMENT GDX Optic Nerve OPHTHALMIC BIOMETRY OPHTHALMIC BIOMETRY PHARMACY 2 EYES OFFICE/OUTPATIENT VISIT, EST VISUAL FIELD EXAMINATION(S) EYE EXAM & TREATMENT GDX Optic Nerve ECHO EXAM OF EYE, THICKNESS OFFICE/OUTPATIENT VISIT, EST VISUAL FIELD EXAMINATION(S) OFFICE/OUTPATIENT VISIT, EST OFFICE/OUTPATIENT VISIT, EST OFFICE/OUTPATIENT VISIT, EST VISUAL FIELD EXAMINATION(S) MICROFLUID MIRACLE TEARS MICROFLUID MIRACLE TEARS OFFICE/OUTPATIENT VISIT, EST GDX Optic Nerve OFFICE/OUTPATIENT VISIT, EST VISUAL FIELD EXAMINATION(S) EYE EXAM & TREATMENT GDX Optic Nerve REFRACTION GDX Optic Nerve OFFICE/OUTPATIENT VISIT, EST OFFICE/OUTPATIENT VISIT, NEW GDX Optic Nerve Advance Directives Directive Yes / No Effective Date File Name No Information Encounters Encounter Description Practice Location Reason(s) For Visit Diagnoses Date Provider Providers Copied on Encounter [facility], [address] [place] [address], [id number], tel:[phone] [facility] No Information 5 Tirso Leslie. [address] [place] [address], [id number], [place]. tel:[phone] [facility], [address] [place] [address], [id number], [place] tel:[phone] [facility] No Information 5 Tirso Leslie. [address] [place] [address], [id number], [place]. tel:[phone] [facility], [address] [place] [address], [id number], tel:[phone] [facility] No Information 5 Wenceslao Alvarado. [address] [place] [address], [id number], [place]. tel:[phone] OFFICE/OUTPA TIENT VISIT, [facility], [address] [place] [address], [id number], tel:[phone] [facility] glaucoma (chief complaint) irritation (chief complaint) Primary open-angle glaucoma, bilateral, moderate stageVitreous degeneration, bilateralMeib omian gland dysfunction (MGD) of both eyesPresence of intraocular lens Sep-0 4 Wenceslao Alvarado. [address] [place] [address], [id number], [place]. tel:[phone] Referring Provider: Joel Polanco MD , [address] [place] [address], [facility]. tel:[phone] OFFICE/OUTPA TIENT VISIT, [facility], [address] [place] [address], [id number], tel:[phone] [facility] Glaucoma, followup (chief complaint) Primary open-angle glaucoma, bilateral, moderate stageVitreous degeneration, bilateralMeib omian gland dysfunction (MGD) of both eyesPresence of intraocular lens Dec-0 3 Wenceslao Alvarado. [address] [place] [address], [id number], [place]. tel:[phone] Referring Provider: Christiano Billy [address] [place] [address], [id number]. tel:[phone] OFFICE/OUTPA TIENT VISIT, [facility], [address] [place] [address], [id number], tel:[phone] [facility] Glaucoma (chief complaint) Primary open-angle glaucoma, bilateral, moderate stageVitreous degeneration, bilateralPres ence of intraocular lensMeibomian gland dysfunction (MGD) of both eyes Connor-0 3 Wenceslao Alvarado. [address] [place] [address], [id number], [place]. tel:[phone] Referring Provider: Christiano Billy [address] [place], [address]. tel:[phone] [facility], [address] [place] [address], [id number], tel:[phone] [facility] POAG (chief complaint) Primary open-angle glaucoma, bilateral, moderate stageParkinso n's diseaseKerato conjunctiviti s sicca, 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's, bilateralVitr eous degeneration, bilateralPres ence of intraocular lensPtosis of both eyelids 0 3 Krishnasamy Olivier. [address], [address], [place], [place], [id number], [place]. tel:[phone] Referring Provider: Joel Garcia, [address], [place], [address]. tel:[phone] [facility], [address] [place] [address], [id number], tel:[phone] [facility] POAG (chief complaint) Primary open-angle glaucoma, bilateral, moderate stageParkinso n's diseaseKerato conjunctiviti s sicca, 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's, bilateralPres ence of intraocular lens 2 Krishnasamy Olivier. [address], [address], [place], [place], [id number], [place]. tel:[phone] Referring Provider: Joel Garcia, [address], [place], [address]. tel:[phone] OFFICE/OUTPA TIENT VISIT, EST [facility], [address] [place] [address], [id number], [place] tel:[phone] [facility] POAG (chief complaint) Primary open-angle glaucoma, bilateral, moderate stagePresence of intraocular lensVitreous degeneration, bilateralPark inson's diseaseKerato conjunctiviti s sicca, 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's, bilateralMech anical ptosis of bilateral eyelids Feb- 1 Krishnasamy Olivier. [address], [address], [place], [place], [id number], [place]. tel:[phone] Referring Provider: Joel Garcia, [address], [place], [address]. tel:[phone] OFFICE/OUTPA TIENT VISIT, [facility], [address] [place] [address], [place], [place], [id number], [place] tel:[phone] [facility] POAG (chief complaint) Primary open-angle glaucoma, bilateral, moderate stagePresence of intraocular lens 0 1 Emily Vallecillo. [address] [facility], [address], [place], [address], [place]. tel:[phone] Referring Provider: Joel Garcia, [address], [place], [address]. tel:[phone] OFFICE/OUTPA TIENT VISIT, [facility], [address] [place] [address], [place], [place], [id number], [place] tel:[phone] [facility] POAG (chief complaint) Primary open-angle glaucoma, bilateral, moderate stagePresence of intraocular lensVitreous degeneration, bilateral 1 Emily Vallecillo. [address] [facility], [address], [place], [address], [place]. tel:[phone] Referring Provider: Joel Garcia, [address], [place], [address]. tel:[phone] [facility], [address] [place] [address], [place], [place], [id number], [place] tel:[phone] [facility] Post-Op (chief complaint) Primary open-angle glaucoma, bilateral, moderate stage Nov- 0 Emily Vallecillo. [address] [facility], [address], [place], [address], [place]. tel:[phone] Referring Provider: Joel Garcia, [address], [place], [address]. tel:[phone] [facility], [address] [place] [address], [place], [place], [id number], [place] tel:[phone] [facility] No Information Oct-2 0 Emily Vallecillo. [address] [facility], [address], [place], [address], [place]. tel:[phone] Referring Provider: Avel Kaye, [address] [place] [address] [address], [place], [address]. tel:[phone] OFFICE/OUTPA TIENT VISIT, [facility], [address] [place] [address], [place], [place], [id number], [place] tel:[phone] [facility] POAG (chief complaint) Primary open-angle glaucoma, bilateral, moderate stagePresence of intraocular lens Oct-1 0 Emily Vallecillo. [address] [place] [address], [address], [place], [address], [place]. tel:[phone] Referring Provider: Avel Kaye, [address] [place] [address] [address], [place], [address]. tel:[phone] OFFICE/OUTPA TIENT VISIT, [facility], [address] [place] [address], [place], [place], [id number], [place] tel:[phone] [facility] lens check (chief complaint) glaucoma check (chief complaint) Vitreous degeneration, bilateralBila teral keratoconjunc tivitis sicca, 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'sPres ence of intraocular lensPrimary open-angle glaucoma, bilateral, moderate stageParkinso ns diseaseOther secondary cataract, right eye Sep-1 0- 0 Rishi Teranhil. [address], [address], [place], [place], [id number], [place]. tel:[phone] Referring Provider: Joel Garcia, [address], [place], [address]. tel:[phone] [facility], [address] [place] [address], [place], [place], [id number], [place] tel:[phone] [facility] IOL (chief complaint) Presence of intraocular lens 0 Krishnasamy Olivier. [address], [address], [place], [place], [id number], [place]. tel:[phone] Referring Provider: Joel Garcia, [address] [place] [address], [place], [address]. tel:[phone] [facility], [address] [place] [address], [id number], [place] tel:[phone] [facility] Post-Op (chief complaint) Presence of intraocular lens 0 Krishnasamy Olivier. [address], [address], [place], [place], [id number], [place]. tel:[phone] Referring Provider: Joel Garcia, [address], [place], [address]. tel:[phone] [facility], [address] [place] [address], [id number], [place] tel:[phone] [facility] [place] No Information 0 Krishnasamy Olivier. [address], [address], [place], [place], [id number], [place]. tel:[phone] Referring Provider: Olivier Blackwell , [address], [place], [address]. tel:[phone] [facility], [address] [place] [address], [id number], [place] tel:[phone] [facility] Post-Op (chief complaint) Presence of intraocular lens 0 Krishnasamy Olivier. [address], [address], [place], [place], [id number], [place]. tel:[phone] Referring Provider: Joel Garcia, [address] [place] [address], [place], [address]. tel:[phone] [facility], [address] [place] [address], [place], [place], [id number], [place] tel:[phone] [facility] Post-Op (chief complaint) Presence of intraocular lens 0 Chilango Eldon. [address], [address], [place], [place], [id number], [place]. tel:[phone] Referring Provider: Joel Garcia, [address], [place], [address]. tel:[phone] [facility], [address] [place] [address], [place], [place], [id number], [place] tel:[phone] [facility] [place] No Information 0 Rishi Welchl. [address], [address], [place], [place], [id number], [place]. tel:[phone] Referring Provider: Olivier Blackwell , [address], [place], [address]. tel:[phone] [facility], [address] [place] [address], [place], [place], [id number], [place] tel:[phone] [facility] blurry vision (chief complaint) POAG (chief complaint) Primary open angle glaucoma of both eyes, mild stageAge-rela james nuclear cataract, bilateralVitr eous degeneration, bilateralPark insons diseaseBilate ral keratoconjunc tivitis sicca, 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's 9 Rishi Olivier. [address], [address], [place], [place], [address], [place]. tel:[phone] Referring Provider: Joel Garcia, [address], [place], [address]. tel:[phone] OFFICE/OUTPA TIENT VISIT, [facility], [address] [place] [address], [place], [place], [id number], [place] tel:[phone] [facility] POAG F/U (chief complaint) Primary open angle glaucoma of both eyes, mild stageAge-rela james nuclear cataract, bilateralKera titis sicca, both eyesVitreous degeneration, bilateralPark insons diseaseMyopia , bilateral 9 Krishnasmanoj Teranhil. [address], [address], [place], [place], [id number], [place]. tel:[phone] Referring Provider: Olivier Blackwell , [address], [place], [address]. tel:[phone] [facility], [address] [place] [address], [id number], tel:[phone] [facility] POAG (chief complaint) blurry vision (chief complaint) Primary open angle glaucoma of both eyes, mild stageAge-rela james nuclear cataract, bilateralKera titis sicca, both eyes 8 Krishnasmanoj Teranhil. [address], [address], [place], [place], [address], [place]. tel:[phone] Referring Provider: Olivier Blackwell [address], [place], [address]. tel:[phone] OFFICE/OUTPA TIENT VISIT, [facility], [address] [place] [address], [id number], [place] tel:[phone] [facility] IOP check (chief complaint) ParkinsonsAge -related nuclear cataract, bilateralPrim trevor open angle glaucoma of both eyes, mild stageKeratiti s sicca, both eyes 8 Krishnasamy Olivier. [address], [address], [place], [address], [place]. tel:[phone] Referring Provider: Olivier Blackwell , [address], [place], [address]. tel:[phone] OFFICE/OUTPA TIENT VISIT, [facility], [address] [place] [address], [id number], tel:[phone] [facility] glaucoma check (chief complaint) Primary open angle glaucoma of both eyes, mild stageAge-rela james nuclear cataract, bilateralKera titis sicca, both eyesTear film insufficiency of bilateral lacrimal glandsVitreou s degeneration, bilateralBlep haritis of eyelid May- 7 Krishnasamy Olivier. [address], [address], [place], [place], [address], [place]. tel:[phone] Referring Provider: Olivier Blackwell , [address], [place], [address]. tel:[phone] OFFICE/OUTPA TIENT VISIT, [facility], [address] [place] [address], [id number], tel:[phone] [facility] POAG (chief complaint) PVD (posterior vitreous detachment), both eyesParkinson 's diseaseMyopia , bilateralKera titis sicca, both eyesAge-relat ed nuclear cataract, bilateralPrim trevor open angle glaucoma of both eyes, mild stage Connro- 7 Krishnasamy Olivier. [address], [address], [place], [place], [id number], [place]. tel:[phone] Referring Provider: Olivier Blackwell , [address], [place], [address]. tel:[phone] OFFICE/OUTPA TIENT VISIT, [facility], [address] [place] [address], [id number], tel:[phone] [facility] POAG check (chief complaint) FBS (chief complaint) Primary open angle glaucoma of both eyes, mild stageAge-rela james nuclear cataract, bilateralPVD (posterior vitreous detachment), both eyesKeratitis sicca, both eyesParkinson 's diseaseMyopia , bilateral May- 7 Krishnasamy Olivier. [address], [address], [place], [place], [id number], . tel:[phone] Referring Provider: Olivier Blackwell [address], [place], [address]. tel:[phone] OFFICE/OUTPA TIENT VISIT, [facility], [address] [place] [address], [id number], tel:[phone] [facility] Glaucoma (chief complaint) Vitreous floaters of both eyesTear film insufficiency , unspecifiedPr imary open angle glaucoma of both eyes, mild stageAge-rela james nuclear cataract, bilateralMyop ia of both eyesParkinson s disease 6 Krishlisa Olivier. [address], [address], [place], [place], [address], . tel:[phone] Referring Provider: Olivier Blackwell [address], [place], [address]. tel:[phone] OFFICE/OUTPA TIENT VISIT, [facility], [address] [place] [address], [id number], tel:[phone] [facility] Glaucoma, pressure check (chief complaint) Primary open angle glaucoma of both eyes, mild stageSenile nuclear sclerosis, bilateralVitr eous floaters of both eyesKeratocon junctivitis sicca, 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 sjogrDry eyes, bilateral 6 Krishnasamy Olivier. [address], [address], [place], [place], [id number], [place]. tel:[phone] Referring Provider: Olivier Blackwell [address], [place], [address]. tel:[phone] [facility], [address] [place] [address], [id number], tel:[phone] [facility] Office glaucoma (chief complaint) Vitreous floaters of both eyesTear film insufficiency , unspecifiedSe nile nuclear sclerosis, bilateralPrim trevor open angle glaucoma of both eyes, mild stage Dec-0 8 5 Krishnasmanoj Teranhil. [address], [address], [place], [place], [address], . tel:[phone] Referring Provider: Olivier Blackwell , [address], [place], [address]. tel:[phone] OFFICE/OUTPA TIENT VISIT, [facility], [address] [place] [address], [id number], tel:[phone] [facility] 6 month glaucoma check (chief complaint) H/O floaters (chief complaint) Parkinson'sOp en angle with borderline findings, low riskVitreous FloatersSenil e nuclear sclerosisTear film insufficiency , unspecifiedKe ratoconjuncti vitis sicca, 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 sjogr Connor-0 5 Krranulfo Teranhil. [address], [address], [place], [address], [place]. tel:[phone] Referring Provider: Olivier Blackwell [address], [place], [address]. tel:[phone] OFFICE/OUTPA TIENT VISIT, [facility], [address] [place] [address], [id number], tel:[phone] [facility] Glaucoma (chief complaint) Blurry vision (chief complaint) Parkinson'sVi treous FloatersSenil e nuclear sclerosisOpen angle with borderline findings, low risk Dec-0 4 Krishnasamy Olivier. [address], [address], [place], [place], [address], [place]. tel:[phone] Referring Provider: Olivier Blackwell , [address], [place], [address]. tel:[phone] Family History Family Member Type Diagnosis Age At Onset Problem (finding) No family history of Hy pertension Problem (finding) No family hist ory of Macular degeneration Problem (finding) No family history of Di abetes mellitus Problem (finding) No family history of Gl [place] Payers Payer name Insurance type Covered libertarian ID Authoriza tion(s) No Information Social History Type Description Quantity Date Captured Comments Alcohol Use Details Unknown Caffeine Use Details Unknown Tobacco Use Status No Information Smoking Status No Information Sex Male Chief Complaint And Reason For Visit No Information Reason For Referral Reason For Referral No Information Plan Of Treatment Date Type Action Status Appointment Angel Antoine BOOKED Future Order: Radiology Order Ze iss Visual Field Analyzer GAL ([id number]), Sent on: Sent History Of Present Illness Encounter Date Complaint History Of Prese nt Illness glaucoma The 83 year old male presents for evaluation of glaucoma, longstanding, moderate stage OU. Pt denies head/brow aches and feeling eye pressure. Pt is using Latanoprost QHS OU (last drop 10pm) and Simbrinza BID OU (last drop 8am), reports consistency with use.*Pt switched from Zioptan QHS OU to Latan QHS OU due to insurance coverage in late September [address] Billy, see Patient Communication from 10/04/23 irritation The patient is p resent for evaluation of irritation in both eyes. Pt reports after using Simbrinza in the mornings, eyelids feel like they are sticking together. Pt reports this is longstanding. Pt reports he does not use any ATs or warm compresses. Glaucoma, followup The 83 year o ld male presents for evaluation of Glaucoma, followup in the right eye and left eye. Pt reports vision is stable. Compliant with drops. Taking Simbrinza BID OU, took this morning @ 7:30 am and 9-10pm . Zioptan Qhs OU, Took last night @9pm. Constant. Glaucoma The 82 year old male presents for evaluation of Glaucoma in the right eye and left eye. The symptom is constant. The condition is moderate. using Simbrinza 2 x d last used this am, Zioptan OU q hs last used last night POAG The 82 year old male presents for evaluation of POAG. OCT ON ordered today. Patient taking zioptan OU QHS and Simbrinza OU BID. Patient states vision OU since last exam is stable without correction. POAG The 81 year old male presents for evaluation of POAG. HVF ordered today. IOP check. Patient states vision OU sine last visit is unchanged without correction. Patient Taking Zioptan Ou QHS and Simbrinza OU BID, patients helps with gtts. (Patient had difficulty staying VF testing machine) POAG The 80 year old male presents for evaluation of POAG OU per Dr. Diaz. Patient reports no changes in vision or comfort OU since his last visit. Patient is using Zioptan QHS OU and Simbrinza BID OD only (last plan indicates that it should be OU.) Patient is scheduled for OCT OU today. POAG The 80 year old male presents for evaluation of POAG in the right eye and left eye. It started about 3 month(s) ago. Patient states that he is compliant with Simbrinza BID OU and Zioptan QHS OU patients puts them in.S/P SLT ODHVF ordered today POAG The 80 year old male presents for evaluation of POAG in the right eye and left eye. It started about 1 year(s) ago. It occurs all the time. Patient states that there has been no changes since last visit.Patient is compliant with Simbrinza BID OU and Travatan Z QHS OU.no testing ordered todayS/p SLT OD 04/01/20 Post-Op Additional infor mation: Pt states his eye is doing fine. He denies pain/discomfort. POAG The 79 year old male presents for evaluation of POAG in the right > left. Last exam with SK was about 1 month(s) ago. The condition is constant. The condition is moderate. Patient is currently taking Travatan QHS OU and Simbrinza BID OD only. ON OCT and PACHS ordered today. glaucoma check The patient is p resent for evaluation of glaucoma check in the right eye and left eye. It started about 1 year(s) ago. The symptom is constant. The condition is significant. Travatan QHS OU and Simbrinza BID OD, VF was ordered today. lens check The 79 year old male presents for evaluation of lens check in the right eye and left eye. It started about 6 month(s) ago. The symptom is constant. The condition is significant. PC IOL OU, no glasses at this time. STND DSNT OU. The pt states he is happy with his vision. PC IOL Pt presents for 1 week s/p PC IOL OS. Pt reports OS feels comfortable. OD still has FBS. VA is doing great, especially OS. Post-Op The status of th e patient has improved. Additional information: Pt states his VA is better. He denies pain/discomfort.STD DistanceOC pt. Post-Op The status of th e patient has improved. The patient reports no pain. Additional information: Pt states vision OD is good.S/P CEIOL OD Std/DistOC's ptOS is not scheduled yet. Post-Op Additional infor mation: Pt presents for a 1 day PC IOL (ST, dist) PO OD. Patient reports vision OD seems to be improving since surgery. No pain or irritation. Compliant w/ all gtts. OS not yet scheduled.h/o POAG. OC Pt. blurry vision The 79 year old male presents for evaluation of blurry vision. Patient reports a gradual decrease in distance vision OU over the last few months. States over the last few weeks seems to be progressing quickly. OU seem to be affected equally and symptoms are moderate. Patient states reading vision seems adequate for current needs. Denies glare symptoms. Optical Biometry and corneal topography done today. POAG The patient is p resent for a 6 month IOP check. Patient compliant w/ Brandan Z QHS OU and Simbrinza BID OD only.ON OCT ordered today. POAG F/U The 78 year old male presents for evaluation of POAG F/U in the right eye and left eye. It started about 6 month(s) ago. It occurs all the time. The condition is mild. Pt states no complaints/changes since last OV. A nerve OCT was ordered today. gtts Simbrinza BID OD, Travatan Z qhs OU POAG The 78 year old male presents for evaluation of POAG in the right eye and left eye. Last exam was about 6 month(s) ago. The condition is constant. The condition is stable. Pt is currently taking Travatan Z QHS OU and Simbrinza BID OD only. ON OCT and pachs were ordered today. blurry vision The patient is p resent for evaluation of blurry vision in the right eye and left eye. It started about 6 month(s) ago. It affects near vision. The symptom is constant. The condition is significant. Pt C/O having more rouble while reading OU. Pt denies any dryness or discomfort OU. Pt reports his distance vision is stable OU. IOP check The 77 year old male presents fora 6 month IOP check in the right eye and left eye. Pt c/o decreased vision. It started about 6 month(s) ago. It affects OD > OS. The symptom is constant. The condition is stable. Pt is using Travatan QHS and Simbrinza BID OD only. VF ordered today. glaucoma check The 77 year old male presents for 6 month Physician directed F/U evaluation of glaucoma check OU. Patient is using Travatan Z OU QHS & Simbrinza OD only BID. Patient reports good compliance with drops. Pt presents for a Physician directed IOP check after using Simbrinza OD BID POAG The 76 year old male presents for evaluation of POAG in the right eye and left eye. It started about 3 week(s) ago. It affects OU. The symptom is constant. The condition is mild. Pt presents for a physician directed IOP check. Pt uses Travatan QHS OU and started on Simbrinza BID OD. FBS The patient is p resent for evaluation of FBS in the right eye. It started about 1 month ago. Pt states 1 mo ago a twig hit him in his right eye which caused it to be very red and bloody". Redness has resolved. Pt has had FBS since then. No ATs.TL 275/292 POAG check The 76 year old male presents for a 6 month POAG check in both eyes. Pt taking Travatan Z QHS OU- needs refill. Vision seems stable per pt. 24-2 VF today. Glaucoma The 76 year old male presents for evaluation of Glaucoma in the right eye and left eye. It started about 6 month(s) ago. The symptom is constant. The condition is stable. Glaucoma, pressure check The 75 year old male presents for evaluation of Glaucoma, pressure check in the right eye and left eye. It started about 7 month(s) ago. The symptom is constant. The condition is stable. Pt states is currently on Travatan QD OU OD>OS and is doing well with them. Pt states no change in vision with current pair of glasses. VF was done today glaucoma Patient presents for 6 month follow up of Glaucoma OU and for OCT testing toay. Patient complains of blurry vision OD, constant, mild, and stable. Pt is currently using Travtan Z QHS OU. H/O floaters The patient is p resent for evaluation of H/O floaters in the right eye and left eye. Hasn't noticed change/increase in floaters. No flashes 6 month glaucoma check The 74 ye ar old male presents for evaluation of 6 month glaucoma check in the right eye and left eye. Vision seems stable OU with progressive specs. No ocular discomfort. Travatan Z OU q hs as directed with no complaints - LD last night 10:00PMVF done today Glaucoma The 74 year old male presents for evaluation of Glaucoma in the right eye and left eye. It started about 1 year(s) ago. The symptom is constant. The condition is stable. Pt using Travatan OU. Blurry vision The patient is p resent for evaluation of Blurry vision in the right eye and left eye. It started about 1 month(s) ago. The symptom is constant. The condition is worsening. 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 Impression/Plan Related to Vitre ous degeneration, bilateral Impression/Plan 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, bilateral, moderate stage Impression/Plan 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, bilateral, moderate stage Impression/Plan Related to Vitre ous degeneration, bilateral Impression/Plan Related to Prese nce of intraocular lens Impression/Plan 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 Impression/Plan Related to Vitre ous degeneration, bilateral Impression/Plan Related to Prese nce of intraocular lens Impression/Plan Related to Ptosi s of both eyelids Impression/Plan 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, bilateral, moderate stage Impression/Plan Related to Parki nson's disease Impression/Plan Related to Kerat oconjunctivitis sicca, 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's, bilateral Impression/Plan 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, bilateral, moderate stage Impression/Plan Related to Parki nson's disease Impression/Plan Related to Kerat oconjunctivitis sicca, 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's, bilateral Impression/Plan Related to Prese nce of intraocular lens Impression/Plan 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, bilateral, moderate stage Impression/Plan Related to Prese nce of intraocular lens Impression/Plan Related to Vitre ous degeneration, bilateral Impression/Plan Related to Parki nson's disease Impression/Plan Related to Kerat oconjunctivitis sicca, 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's, bilateral Impression/Plan Related to Mecha nical ptosis of bilateral eyelids Impression/Plan Related to Prese nce of intraocular lens Impression/Plan 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, bilateral, moderate stage Impression/Plan 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, bilateral, moderate stage Impression/Plan Related to Prese nce of intraocular lens Impression/Plan Related to Vitre ous degeneration, bilateral Impression/Plan 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, bilateral, moderate stage Impression/Plan 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, bilateral, moderate stage Impression/Plan Related to Prese nce of intraocular lens Impression/Plan Related to Prese nce of intraocular lens Impression/Plan Related to Other secondary cataract, right eye Impression/Plan Related to Vitre ous degeneration, bilateral Impression/Plan Related to Bilat eral keratoconjunctivitis sicca, 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's Impression/Plan 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, bilateral, moderate stage Impression/Plan Related to Parki nsons disease Impression/Plan Related to Prese nce of intraocular lens Impression/Plan Related to Prese nce of intraocular lens Impression/Plan Related to Prese nce of intraocular lens Impression/Plan Related to Prese nce of intraocular lens Impression/Plan Related to Prese nce of intraocular lens Impression/Plan Related to Age-r elated nuclear cataract, bilateral Impression/Plan Related to Bilat eral keratoconjunctivitis sicca, 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's Impression/Plan Related to Parki nsons disease Impression/Plan Related to Vitre ous degeneration, bilateral Impression/Plan Related to Prima ry open angle glaucoma of both eyes, mild stage Impression/Plan Related to Prima ry open angle glaucoma of both eyes, mild stage Impression/Plan Related to Age-r elated nuclear cataract, bilateral Impression/Plan Related to Kerat itis sicca, both eyes Impression/Plan Related to Vitre ous degeneration, bilateral Impression/Plan Related to Parki nsons disease Impression/Plan Related to Myopi a, bilateral Impression/Plan Related to Prima ry open angle glaucoma of both eyes, mild stage Impression/Plan Related to Kerat itis sicca, both eyes Impression/Plan Related to Age-r elated nuclear cataract, bilateral Impression/Plan Related to Age-r elated nuclear cataract, bilateral Impression/Plan Related to Prima ry open angle glaucoma of both eyes, mild stage Impression/Plan Related to Kerat itis sicca, both eyes Impression/Plan - No treatment currently recommended. The patient will monitor vision changes and contact us with any decrease in vision. Related to Age-related nuclear cataract, bilateral Impression/Plan - In traocular pressure well controlled, tolerating medications. Will continue with same regimen. 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 Discussed treatment options with patient. Recommend lid scrubs. 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 Explained condition does not have a cure and will need artificial tears for maintenance. 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 Patient instructed to call office immediately if any symptoms noted. Related to Vitreous degeneration, bilateral Impression/Plan - Th ere is no evidence of permanent changes to the cornea. Explained condition does not have a cure and will need artificial tears for maintenance. 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 Related to Parkinson's disease Impression/Plan - St able. No updated Rx given to pt today. Related to Myopia, bilateral Impression/Plan - Th ere is no evidence of permanent changes to the cornea. Explained condition does not have a cure and will need artificial tears for maintenance. 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 The patient will monitor vision changes and contact us with any decrease in vision. Related to Age-related nuclear cataract, bilateral Impression/Plan - Di scussed signs and symptoms of retinal detachment. Discussed signs and symptoms of PVD/floaters. No treatment is required at this time. Will continue to observe condition and or symptoms. Patient instructed to call if condition gets worse. 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 VF ordered today and shows possible inferior changes OD. Poor reliability. Continue with medication and observe. Increase IOP on meds, will add Simbrinza 1 gtt BID OD. TRO in 3-4 weeks for IOP check. Will rx Simbrinza if effective. 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 VF ordered today and shows possible inferior changes OD. Poor reliability. Continue with medication and observe. Increase IOP on meds, will add Simbrinza 1 gtt BID OD. TRO in 6 mo for F/U with SK. 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 The patient will monitor vision changes and contact us with any decrease in vision. Related to Age-related nuclear cataract, bilateral Impression/Plan - Co ntinue care with PCP. Related to Parkinson's disease Impression/Plan - Di scussed signs and symptoms of retinal detachment. Discussed signs and symptoms of PVD/floaters. No treatment is required at this time. Will continue to observe condition and or symptoms. Patient instructed to call if condition gets worse. 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 Explained condition does not have a cure and will need artificial tears for maintenance. 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 No updated Rx given to pt today. Related to Myopia, bilateral Follow up - RTO in 3 -4 weeks for IOP check with SK Impression/Plan - No treatment currently recommended. The patient will monitor vision changes and contact us with any decrease in vision. Related to Age-related nuclear cataract, bilateral Impression/Plan - Dr y eyes account for the patient's complaints. There is no evidence of permanent changes to the cornea. Explained condition does not have a cure and will need artificial tears for maintenance. Related to Tear film insufficiency, unspecified Impression/Plan - Di scussed diagnosis in detail with patient. Advised patient of condition. No treatment is required at this time. Will continue to observe condition and or symptoms. Discussed signs and symptoms of retinal detachment. Discussed signs and symptoms of PVD/floaters. Call if VA worsens. Related to Vitreous floaters of both eye s Impression/Plan - Seun rderline glaucoma, intraocular pressure stable withmedication. Mac OCT ordered today and shows full OU. Continue with medication and observe. 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 Blackwell Follow up - Return i n 6 months for complete exam. Impression/Plan - VF today mild inferior changes OD, full OS, poor reliability OU. IOP stable on Travatan z OU QD. Will continue to observe. 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 The patient will monitor vision changes and contact us with any decrease in vision. Related to Senile nuclear sclerosis, bilateral Impression/Plan - Al l signs and risks of retinal detachment and tears were discussed in detail. Patient instructed to call the office immediately if any symptoms noted. Related to Vitreous floaters of both eye s Impression/Plan - Th ere is no evidence of permanent changes to the cornea. Explained condition does not have a cure and will need artificial tears for maintenance. Related to Dry eyes, bilateral Impression/Plan - In traocular pressure borderline OD>OS, tolerating medications. Will continue with same regimen. Continue Travatan OU QD. 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 Patient instructed to call the office immediately if any symptoms noted. Related to Vitreous floaters of both eye s Impression/Plan - ATs OU QD. Rel ated to Tear film insufficiency, unspecified Impression/Plan - No treatment currently recommended. The patient will monitor vision changes and contact us with any decrease in vision. Rx given today. Related to Senile nuclear sclerosis, bilateral Follow up - Return i n 6 months with for Complete Exam/ VF Impression/Plan - Mi ld exposure to keratopathy d/t decreased blink, will observe. Related to Parkinson's Impression/Plan - IO P WNL today OU c gtts. Continue Travatan z 1 gtt OU QD. Will continue to observe. POA Glaucoma, intraocular pressure stable with medication. Continue Travatan z. Related to Open angle with borderline findings, low risk Impression/Plan - Al l signs and risks of retinal detachment and tears were discussed in detail. Patient instructed to call the office immediately if any symptoms noted. Related to Vitreous Floaters Impression/Plan - Di scussed diagnosis in detail with patient. Discussed treatment options with patient. Will continue to observe condition and or symptoms. Patient will consider surgery. Call if VA worsens. Related to Senile nuclear sclerosis Impression/Plan - Co ntinue All gtts as directed, will observe. Related to Keratoconjunctivitis sicca, 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 sjogr Follow up - Return i n 6 months with for Dilated Exam , OCT (ON). Impression/Plan - IO P WNL today OU c gtts. Continue Travatan z 1 gtt OU QD. Will continue to observe. Related to Open angle with borderline findings, low risk Impression/Plan - Di scussed diagnosis in detail with patient. Discussed treatment options with patient. Will continue to observe condition and or symptoms. Patient will consider surgery. Call if VA worsens. Related to Senile nuclear sclerosis Impression/Plan - Di scussed diagnosis in detail with patient. Discussed signs and symptoms of retinal detachment. Discussed signs and symptoms of PVD/floaters. Will continue to observe condition and or symptoms. Patient instructed to call if condition gets worse. 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
--- NOTE | ~2025-01-23 | MMUS_ITS ---
EXAMINATION: MM diagnostic david RT w allie, US breast RT limited HISTORY: Right Breast lump TECHNIQUE: 3-D tomosynthesis images of the breasts were performed and synthetic 2-D images were generated. CAD analysis was submitted and interpreted. High resolution limited right breast ultrasound was performed. COMPARISON: None BREAST PARENCHYMAL COMPOSITION:Not Dense. The breasts are almost entirely fatty FINDINGS: MAMMOGRAPHIC FINDINGS: There is probable fibroglandular population the right subareolar region, compatible with asymmetric gynecomastia. Suggestion of a small circumscribed mass at the lower right subareolar area. ULTRASOUND: There is a 6 x 6 x 3 mm hypoechoic, possibly cystic mass at the right subareolar region, correlating with the area of palpable concern. IMPRESSION: 6 mm suspected cystic mass at the right subareolar region at the area of palpable concern. This could reflect benign cyst or possibly local inflammatory process. Neoplasm felt to be less likely. Clinical follow-up recommended. Follow-up ultrasound in 3 months recommended to reassess. Probable underlying asymmetric right gynecomastia. BI-RADS category 3, probably benign findings. Reviewed, dictated and finalized at location . IMPRESSION: 6 mm suspected cystic mass at the right subareolar region at the area of palpa ble concern. This could reflect benign cyst or possibly local inflammatory proc ess. Neoplasm felt to be less likely. Clinical follow-up recommended. Follow-up ultrasound in 3 months recommended to reassess. Probable underlying asymmetric right gynecomastia. BI-RADS category 3, probably benign findings.
--- OUTSIDE RECORDS SUMMARY | 2025-01-23 10:08 | XMS_ITS | Clinical Summary ---
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 Active hydroCHLOROthiaz jason (HYDRODIURIL) 25 mg tabletIndication s:Edema TK 1 T PO D 11 018 Active finasteride (PROSCAR) 5 mg tabletIndication s:benign prostatic hyperplasia with lower urinary tract sx 2 018 Active SIMBRINZA 1-0.2 % drops,suspension Indications:ocul ar hypertension SHAKE LQ AND INT 1 GTT IN OD BID 3 018 Active tamsulosin (FLOMAX) 0.4 mg extended release capsuleIndicatio ns:benign prostatic hyperplasia with lower urinary tract sx qd 019 Active hyoscyamine (LEVSIN) 0.125 mg SL tabletIndication s:Urinary Incontinence Take 1 tablet (0.125 mg total) by mouth every 6 (six) hours as needed for cramping or diarrhea Dissolve tab under the tongue 100 tablet 2 023 Active 0.9 % sodium chloride (sodium chloride 0.9%) 0.9% infusionIndicati ons:Flushing 024 Active allopurinoL (ZYLOPRIM) 100 mg tabletIndication s:prevention of acute gout attack Take 1 tablet (100 mg total) by mouth daily 024 Active diphenoxylate-at ropine (LOMOTIL) 2.5-0.025 mg per tabletIndication s:diarrhea Take 2 tablets by mouth 4 (four) times a day as needed for diarrhea 240 tablet 5 024 Active potassium chloride ER 10 mEq CR tabletIndication s:hypokalemia prevention Take 1 tablet/capsule (10 mEq total) by mouth 2 (two) times a day Active cholecalciferol, vitamin D3, (VITAMIN D3 ORAL)Indications :Vitamin D deficiency Take by mouth qd Active gabapentin (NEURONTIN) 300 mg capsuleIndicatio ns:Essential Tremor Take 3 capsules (900 mg total) by mouth nightly 270 capsule 3 025 2025 Active latanoprost (XALATAN) 0.005 % ophthalmic solutionIndicati ons:open angle glaucoma INSTILL 1 DROP INTO EACH EYE ONCE DAILY IN THE EVENING Active mirtazapine (REMERON) 15 mg tabletIndication s:major depressive disorder Take 2 tablets (30 mg total) by mouth nightly 180 tablet 3 025 2025 Active diphenhydrAMINE (BENADRYL) 25 mg capsuleIndicatio ns:infusion pre-medication Take 1 tablet/capsule (25 mg total) by mouth every 6 (six) weeks Take by mouth 30 minutes prior to infusion. 025 2025 Active Additional Information Patient not taking.Reported on 01/17/2025 inFLIXimab-abda 500 mg in sodium chloride 0.9% 200 mL IVPBIndications: Ulcerative Colitis Infuse 500 mg into a venous catheter every 6 (six) weeks Infuse 500 mg of Infliximab-abda in 250mL of Normal Saline over 2 hours with 1.2 micron filter at the following rates: Rate 1: 10mL/hr for 15 min (2mL) Rate 2: 20mL/hr for 15 min(5mL Rate 3: 40mL/hr for 15 min (10mL) Rate 4: 80mL/hr for 15 min (20mL) Rate 5: 150mL/hr for 15 min (75mL) Rate 6: 250mL/hr for remainder (138mL) 025 2025 Active cefdinir (OMNICEF) 300 mg capsuleIndicatio ns:Abdominal/P[place] will[place] Infection Take 1 capsule by mouth twice daily 180 capsule 1 Active propranolol LA (INDERAL LA) 60 mg 24 hr capsuleIndicatio ns:Essential Tremor Take 1 capsule (60 mg total) by mouth daily 90 capsule 3 025 2025 Active inFLIXimab-abda (RENFLEXIS) 100 mg injectionIndicat ions:Ulcerative chronic pancolitis without complications (HCC) Reconstitute each vial with 10 mL sodium chloride 0.9% for injection. Once reconstituted, draw up 500 mg (50 ml) and add to sodium chloride 0.9% for injection (bag). Infuse with 1.2 micron filter via pole mounted pump. Begin infusion within 4 hours of mixing. Infusion directions: Infuse 500 mg of Infliximab-abda in 250mL of Normal Saline over 2 hours with 1.2 micron filter at the following rates: Rate 1: 10mL/hr for 15 min (2mL) Rate 2: 20mL/hr for 15 min(5mL Rate 3: 40mL/hr for 15 min (10mL) Rate 4: 80mL/hr for 15 min (20mL) Rate 5: 150mL/hr for 15 min (75mL) Rate 6: 250mL/hr for remainder (138mL) 250 mL 01/19/20 25 11:59 PM CDT 025 2025 Active sodium chloride 0.9% flush syringeIndicatio ns:Ulcerative chronic pancolitis without complications (HCC) Infuse 10 mL IV as needed for line care 1000 mL 025 2025 Active 0.9 % sodium chloride (sodium chloride 0.9%) infusionIndicati ons:Ulcerative chronic pancolitis without complications (HCC) Infuse 250 mL IV every 6 (six) weeks Use as IVPB bag for RENFLEXIS infusion Infuse 500 mg of Infliximab-abda in 250mL of Normal Saline over 2 hours with 1.2 micron filter at the following rates: Rate 1: 10mL/hr for 15 min (2mL) Rate 2: 20mL/hr for 15 min(5mL Rate 3: 40mL/hr for 15 min (10mL) Rate 4: 80mL/hr for 15 min (20mL) Rate 5: 150mL/hr for 15 min (75mL) Rate 6: 250mL/hr for remainder (138mL) 1250 mL 01/19/20 25 11:59 PM CDT 2025 Active loperamide (Anti-DiarrheaL, loperamide,) 2 mg tabletIndication s:Ulcerative pancolitis with complication (HCC) Take 2 tablets (4 mg total) by mouth 4 (four) times a day as needed for diarrhea (Do not exceed 8 tablets per day) 240 tablet Active UNABLE TO FIND Prevagen qd Act krystin potassium citrate ER (UROCIT-K) 10 mEq (1,080 mg) CR tablet Take 1 tablet (10 mEq total) by mouth Active budesonide EC (ENTOCORT EC) 3 mg 24 hr capsule Take 1 capsule (3 mg total) by mouth every morning Active carbidopa-levodo pa (SINEMET) 25-100 mg per tabletIndication s:Parkinsonism Take 2 tablets by mouth 3 (three) times a day for 7 days, THEN 1.5 tablets 3 (three) times a day for 7 days, THEN 1 tablet 3 (three) times a day for 7 days, THEN 0.5 tablets 3 (three) times a day for 7 days. Stop taking the carbidopa-levod opa 25/250 strength tabs and start carbidopa-levod opa 25/100 mg strength to taper off of the levodopa as tolerated. 105 tablet 025 2024 Active acetaminophen (TYLENOL) 325 mg tabletIndication s:infusion pre-medication Take 2 tablets (650 mg total) by mouth every 6 (six) weeks Take by mouth 30 minutes prior to infusion. 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 Angel Antoine is a 84 y.o. male, presenting today for follow-up of his PD and RLS. He has historically taken levodopa in the latter part of the day and has only endorsed benefit for walking/balance though today he and his family indicate he is consistently paradoxically worse after doses with more difficulty walking, imbalance, increased tremor, and sleepy. He is not sure the medication does anything for him and that he overall feels best when he is OFF levodopa and would like to consider a trial off of the medication. As such, we will convert his carbidopa-levodopa from 25/250 strength to 25/100 mg to facilitate a taper. He is not inclined to do PT, ST, or OT at this juncture though he would likely benefit. He remains independent for ADLs and RLS historically has been well controlled with gabapentin thus far without side effects. Recommendations: Change from 1 tab carbidopa-levodopa 25/250 TID to 2 tabs carbidopa-levodopa 25/100 mg TID and then reduce by 0.5 tab TID weekly until either notices worsening motor symptoms (which would be suggestive that levodopa is providing some benefit) or off No changes to gabapentin today - remains on 900 mg nightly for RLS Needs follow-up with Dr. Demarco as last seen in 2022 Potential medication side effects were discussed during the encounter. Assessment & Plan (07/20/2024 2:42 PM CHANNELER): Mr. Angel Antoine is a 84 y.o. male, presenting today for follow-up of his PD and RLS. Over the past few visit we have noticed progressive worsening of his MDS- UPDRS though he has reported being about the same and reluctant to make changes to his levodopa regimen. Also due to his dose scheduling, he is typically seen in the levodopa OFF state. Today, however, he and his do endorse that his mobility and hypophonia have gradually worsened and he is agreeable to making a change to his regimen. He takes his carbidopa-levodopa TID but at [id number] though he is waking himself up at night sometimes at 7 pm and always at 10 pm to take his doses. He never shifted his dose times after last visit as recommended. Before increasing his levodopa dose, I recommend changing his dose scheduling to fall in his awake/active parts of the day rather than taking them at sleep as he is not bothered and has not been bothered by nocturnal tremor or dystonia. He does not wake up in the middle of the night and has not previously endorsed bothersome nocturnal OFF symptoms. As such, we will first advise him to take his levodopa at [phone]. If needed we can add a fourth dose at 1900 if he is bothered by OFF symptoms before bed in the evening. We may need to change his carbidopa-levodopa tablet strength from 25-250 to 25-100 in the future to allow for more easy dose titration if we need to increase the amount per dose. He was previously uninterested in formal ST but now willing. An external referral was provided as they wish to receive this at [facility] where he is currently performing PT. I also recommended OT. I encouraged exercise and provided them with access information on [employer] YouTube channel as well as online speech exercises through the [employer] website. He remains independent for ADLs and RLS historically has been well controlled with gabapentin thus far without side effects. Recommendations: Continue carbidopa-levodopa 25-250 mg at the same dose of 1 tab TID for Parkinson Disease management but change dose schedule to [id number] instead of taking it at [phone] No changes to gabapentin today - remains on 900 mg nightly for RLS Continue PT Add ST and OT referrals Encouraged exercise - [employer] YouTube access information provided in patient instructions For a free, self-paced Parkinson Disease speech therapy resource, please visit the Parkinson [employer] website where you can access LIVE or pre-recorded speech therapy exercise courses. Please follow the following link: Online [facility] ([email or web address]) Follow-up in 6 months, sooner prn (offered earlier appointment, he does not wish to be seen sooner than 6 months from now) For their daughter, Rosario, I encouraged them to arrange for MyChart Proxy access if they are interested in her being able to view his MyChart and engage in communication with our office Potential medication side effects were discussed during the encounter. Assessment & Plan (04/28/2024 9:28 AM CHANNELER): Mr. Angel Antoine is a 84 y.o. male, presenting today for follow-up of his PD and RLS. He reports being about the same since last clinic visit with me 08/18/23 however MDS-UPDRS a bit worse, particularly postural instability and tremor burden though this was in the levodopa OFF state. MDS UPDRS is 69 compared to 55 at last visit also OFF. He takes his carbidopa-levodopa TID but at [phone] though he is waking himself up at night to take the 2200 dose. It is unclear why he consolidated his dosing to this time but he has previously reported less bothersome tremor during the day. He does not wake up in the middle of the night and does not endorse overnight difficulty rolling in bed or dystonia. He is reluctant to increase or change levodopa dosing but agreeable to shifting his bedtime dose to instead 1 pm to see about optimizing daytime benefit for balance, rigidity, and bradykinesia. I again emphasized the importance and role of PT for his gait impairment and postural instability. He was agreeable and a referral was placed. He is uninterested in formal ST but willing to trial online speech exercises, so provided with [employer] website. He remains independent for ADLs and RLS is well controlled with gabapentin thus far without side effects. He has gained weight with mirtazapine and working with long term acute care registered nurse to increase caloric intake and using boost supplements. He will continue following with [facility]/Dr. Kaye for his ulcerative colitis. Recommendations: Continue carbidopa-levodopa at the same dose for Parkinson Disease management (25-250 mg tablets - 1 tablet three times daily but take at 1 pm, 4 pm, 7 pm) Continue gabapentin at the same dose for Restless Leg Syndrome (300 mg tablets - 3 tabs nightly at bedtime for total of 900 mg) PT referral for gait/balance training, strength/stretching For a free, self-paced Parkinson Disease speech therapy resource, please visit the [facility] [employer] website where you can access LIVE or pre-recorded speech therapy exercise courses. Please follow the following link: [facility] ([email or web address]) Follow-up in 6 months, sooner if needed Potential medication side effects were discussed during the encounter. Assessment & Plan (08/18/2023 12:54 PM CDT): Mr. Angel Antoine is a 83 y.o. male, presenting today for follow-up of his PD and RLS. He has been stable since last being seen in clinic 02/15/23 without noticeable progression in his symptoms (MDS UPDRS is 55 compared to UPDRS 54). He is uninterested in making any adjustments to his carbidopa-levodopa regimen at this time and does not want to participate in physical therapy. He is however, interested in returning to [facility] for speech therapy for his hypophonia. He remains independent for ADLs and RLS is well controlled with gabapentin thus far without side effects. He is eager to gain more weight which has been a struggle due to his ongoing underlying bowel disease and decreased or variable appetite. He has implemented the recommendations from the long term acute care registered nurse (08/06/23) (higher calorie nutritional supplements, GI friendly supplements to see if helps with absorption, and adding scheduled snacks that include protein and carbohydrates). He will continue following with [facility]/Dr. Kaye for his bowel disease. Although there were plans to increase his Mirtazapine from 15 mg to 30 mg in June 2023 also in an effort to increase appetite, this did not occur though he is eager to trial this. He did not wish to be seen sooner in clinic than his already scheduled May [address] Espinosa. Recommendations: Continue carbidopa-levodopa at the same dose for Parkinson Disease management (25-250 mg tablets - 1 tablet three times daily taking at 4 pm, 7 pm, and 10 pm) Continue gabapentin at the same dose for Restless Leg Syndrome (300 mg tablets - 3 tabs nightly at bedtime for total of 900 mg) Referral back to [facility] Increase Mirtazapine to 30 mg (from 15 mg) to increase appetite as previously discussed by Dr. Kaye Follow-up as scheduled with Dr. Espinosa 05/08/24 and ca 6 months after that Potential medication side effects were discussed during the encounter. Assessment & Plan (02/15/2023 9:42 AM CDT): Mr. Angel Antoine is a 82 y.o. male, who presents for follow-up for PD and RLS. He is a bit worse since the last visit from PD perspective. Voice has declined. His weight loss has been related to bowel disease. He does not think he needs the medication in the morning and opts to take it later in the day for the balance.He is independent for ADLs. RLS is well controlled with gabapentin without side effects. His UPDRS worse compared to the last visit. Overall, despite the worsening in the UPDRS, he does not have the perspective of a mobility decline and opted not to change levodopa. He agreed to do the [facility] program. Weight loss is unlikely related to a direct effect of PD. Plan: Continue carbidopa-levodopa at the same dose. Continue gabapentin at the same dose. Referral to [facility]. Potential medication side effects were discussed during the encounter. Assessment & Plan (08/04/2022 11:58 AM CHANNELER): Mr. Angel Antoine is a 82 y.o. male, who presents for follow-up for PD and RLS. He has mild bradykineisa since the last visit. He had good tremor control during the day and more tremor in the evenings. He took levodopa only in the evenings. He did not try tapering down since his states it took awhile to get at the current dose and he was scared to try to come off the levodopa . He felt his current tremor was manageable. Gait is fine and he is independent for ADLs. RLS is well controlled with gabapentin without side effects. Overall, he is doing well and we opted not to make any changes to his medications. Encouraged to continue to stay active. He is continuing to lose weight and is being followed by GI, appetite is good. Encouraged high calorie snacks in between meals as well. Plan: - Same levoodpa - Continue gabapentin at the current dose for RLS. - NPT next visit -Continue to follow up with GI - High calorie snacks and continue boost Potential medication side effects were discussed during the encounter. Assessment & Plan (02/02/2022 10:52 AM CDT): Mr. Angel Antoine is a 81 y.o. male, who presents for follow-up for PD and RLS. He is about the same since the last visit. He did not think reducing the dose of levodopa has made any difference in the tremor. He only takes the medication in the evening. He is not sure whether levodopa is adding anything to his tremor or helping with any other symptoms. Gait is fine and he is independent for ADLs. RLS is well controlled with gabapentin without side effects. His MDS-UPDRS is stable compared to the last visit. Overall, we need to reassess the role of levodopa in treating his bothersome symptom, ie the tremor. As no clear benefits has been noticed now, we will stop the medication and see how he does. We can try a low dose of amantadine if he thinks levodopa does not help him after tapering it off. Plan: - Taper off carbidopa-levodopa. Tapering schedule was given. Additional doses changes may be needed. - Continue gabapentin at the current dose for RLS. - He opted to participate in the study of genetics in movement disorders. Potential medication side effects were discussed during the encounter. Assessment & Plan (07/04/2021 12:58 PM CHANNELER): Mr. Angel Antoine is a 81 y.o. male, who presents for follow-up for Parkinson's disease (PD), complicated by RLS, levodopa-induced dyskinesias and orthostatic hypotension. 1. PD with levodopa-induced dyskinesias. He is worse since the last visit. He has more tremor in the arms as the day passes. The mornings are a good time for him with minimal symptoms. He did not taper carbidopa-levodopa as he was concerned after a discussion with another family member. He thinks levodopa makes the tremor worse. He did not notice dyskinesias since the past visit. We had a long discussion about the purpose of levodopa use and its symptomatic effect. He should decrease the dose of the medication in order to establish whether it is helping him and in which symptoms. He needs to monitor mobility changes while decreasing the dose of levodopa. It is unlikely that levodopa worsens his tremor - it would probably worsen during the day anyway regardless of the use of the medication given his marked diurnal progression of symptoms. We could try amantadine to see if it helps the tremor further. - Decrease carbidopa-levodopa 25/250 to 0.5 tablet four times a day for 1 week, then decrease to 0.5 tablet twice a day (1 pm and 4 pm). - Continue propranolol for now. He may taper him off later. - Continue regular exercise program. 2. RLS in the setting of PD. He is better since the last visit. Gabapentin and mirtazapine have helped with sleep quality without side effects. - Continue gabapentin and mirtazapine at the same dose. Potential medication side effects were discussed during the encounter. Assessment & Plan (12/16/2020 4:44 PM CDT): Mr. Angel Antoine is a 80 y.o. male, who presents for follow-up for Parkinson's disease (PD), complicated by RLS and levodopa-induced dyskinesias. 1. PD with levodopa-induced dyskinesias. He is worse since the last visit. He feels he continues to have the tremor after taking the medication. Dyskinesias are about the same after the increase in the dose of the levodopa. He does not think levodopa helps him at all. His exam is better compared to the last visit. We discussed the findings. At this point, we will try to reduce the dose of levodopa and see what happens with the tremor. If the tremor does not improve, we will work with adding amantadine. The reduction of the medication dose may help with dyskinesias as well. We had a long conversation about disease progression and how his case is atypical in the exceedingly slow progression, which is good for him. - Change carbidopa-levodopa from 25/250 tablets to 25/100 mg tablets and taper the dose of the medication until 1.5 tablets four times a day. We may consider additional tapering. If symptoms worse, we will increase the dose again and add amantadine. - We will continue propranolol for now, but we may consider reducing the dose in the future if tremor improves. - Continue regular exercise program. 2. RLS in the setting of PD. He is better since the last visit. Increase in the dose of gabapentin has really helped him at bedtime. He missed the morning dose and did not notice any difference. He also thinks mirtazapine helps with mood and sleep quality. He does not have side effects from the medications. - Reduce gabapentin 300 mg to 3 capsules at bedtime. Continue mirtazapine at the same dose. Potential medication side effects were discussed during the encounter. Assessment & Plan (06/25/2020 1:49 PM CHANNELER): Mr. Angel Antoine is a 80 y.o. male, who presents for follow-up for Parkinson's disease (PD), complicated by sleep disorder and levodopa-induced dyskinesias. 1. PD with levodopa-induced dyskinesias. He is worse since the last visit. He feels his tremor actually worsens after taking his medication and the worsening lasts about 30 minutes. After that, he feels normal. He did not notice dyskinesias. I reviewed with his and the Tremor are the pattern noted in the clinic. It is unclear whether the tremor is actually a combination of wearing off and delay in absorbing the medication. - Increase carbidopa-levodopa 25/250 mg to 1 tablet 4 times a day. Additional doses changes may be needed. He can try to avoid protein and use orange juice with the medication if the increase in the frequency does not work. --- Can consider ODT tablets in the future. - Continue regular exercise program. 2. RLS in the setting of PD and chronic back pain. He continues to have poor sleep due to discomfort in the legs that improves after he stands and walks. We talked about RLS and how gabapentin could help. He does not think he has side effects from gabapentin. - Increase gabapentin 300 mg to 1 capsule in the morning and 2 capsules at bedtime. If no improvement of the leg discomfort, can increase to 1 capsule in the morning and 3 capsules at bedtime. Potential medication side effects were discussed during the encounter, including sedation for gabapentin. Assessment & Plan (11/20/2019 5:03 PM CDT): Mr. Angel Antoine is a 79 y.o. male, who presents for evaluation of PD. He has had PD symptoms for fifteen years, starting with left arm rest tremor. He had good response to levodopa and recently developed dyskinesias. He does not have wearing off. He does not have significant non-motor symptoms. On examination, there is mild to moderate parkinsonism. History and examination are compatible with PD. He is doing very well on the current regimen. His dyskinesias are not bothersome. He can discontinue the forth dose of the day since it is close to bedtime and does not seem to address any nighttime symptom. This could potentially help with dyskinesias. Plan: - Take carbidopa-levodopa 25/250 mg 1 tablet three times a day (6 am, 12 pm and 6 pm). - Continue exercise routine. Encounters Date Type Department Care Team Description 5 Home Infusion [facility] Home Infusion Therapy [address] [place] [address] Anuj Altman RPh 5 10:00 AM CDT - 5 11:59 PM CDT Hospital Encounter [address] [address] Discharge Disposition: Discharge to home or self care 5 11:30 AM CDT Office Visit [facility] Count includes the [facility] Advanced Medicine 7th [place] [address] Patricia Veliz NP Parkinson's disease, unspecified whether dyskinesia present, unspecified whether manifestations fluctuate (HCC) (Primary Dx) 5 Home Infusion [facility] Home Infusion Therapy [address] [place] [address] Areli John 5 9:30 AM CDT - 5 10:00 AM CDT Surgery [facility] [address] [facility] [address] [place] [address] Aydin Tam MD ESOPHAGOGASTRODUODENOSCOPY ENDOSCOPIC ULTRASOUND 5 9:24 AM CDT Anesthesia Event [facility] [address] [address] Ashan Dee MD Hubbard, Gary Lee, [place] 5 8:12 AM CDT - 5 10:53 AM CDT Hospital Encounter [facility] [address] [address] Aydin Tam MD Weight loss, unintentional; Dilation of biliary tract Discharge Disposition: Discharge to home or self care 5 Telephone [facility] [address] [facility] Medical Office Building [address], [address] [place] [address] Giovanna Gutierrez LPN GI Preprocedure 5 Telephone [facility] [address] [place] [phone] Mirna Can, RN Appt recommendations 5 Orders Only [facility] [address] [place] [phone] Massiel Lima, JOSE ALFREDO High risk medications (not anticoagulants) long-term use (Primary Dx); Infliximab (Remicade) long-term use; Ulcerative pancolitis without complication (HCC) 5 Documentation [facility] [address] [place] [phone] Sailaja Oakley RMA EGD 5 Plan of Care Documentation [facility] Home Infusion Therapy [address] [place] [address] 5 11:15 AM CDT Office Visit [facility] [address] [place] [address] [place] [phone] Fany Kaye MD PhD Ulcerative pancolitis with complication (HCC) (Primary Dx); Pouchitis (HCC); Small bowel obstruction (HCC); Weight loss; Common bile duct dilatation; High risk medications (not anticoagulants) long-term use 5 3:11 PM CDT - 5 11:59 PM CDT Hospital Encounter [facility] [address] [place] [address] Discharge Disposition: Discharge to home or self care 5 11:00 AM CDT Home Care Visit [facility] Home Infusion Therapy [address] [place] [address] Rosemarie Randle RN HI INF [address] ROUTINE 5 Results Follow-Up [facility] [address] [facility] Medical Office Building [address] [place] [phone] Fany Kaye MD PhD Comprehensive metabolic panel, without glucose (Outreach), Glucose, random (Outreach), CBC with auto differential, Additional followed-up results: 4 5 Home Infusion [facility] Home Infusion Therapy [address] [place] [address] Anuj Altman, [facility] 5 Home Infusion [facility] Home Infusion Therapy [address] [place] [address] Areli John 5 Home Care Visit [address] [place] [address] Carmen Currie RN SN DISCIPLINE DISCHARGE 5 Plan of Care Documentation [facility] Home Infusion Therapy [address] [place] [address] 5 Home Infusion [facility] Home Infusion Therapy [address] [place] [address] Anuj Altman, [facility] Ulcerative chronic pancolitis without complications (HCC) (Primary Dx) 5 9:00 AM CDT Home Care Visit [address] [place] [address] Rosemarie Randle RN SN INFUSION TREATMENT ROOM from Last 3 Months Immunizations Immunization Administration Dates Next Due Influenza, Trivalent, Adjuva nted, Intramuscular 03/02/2019 Influenza, Trivalent, High D ose, Split, Preservative Free, Intramuscular 02/20/2018 Pneumococcal Conjugate PCV 13 04/21/2016 Pneumococcal Polysaccharide PPV23 04/21/2017 ZOSTER Recombinant 10/10/2018,05/17/2018, 018 Surgical History Surgery Date Site/Laterality Comments CHOLECYSTECTOMY TOTAL SHOULDER REPLACEMENT 06/07/2014 - 06/06/2015 Right [place] INJ LUMBAR/SACRAL,W/WO CNTRST PARASTOMAL HERNIA REPAIR 06/07/2013 - 06/06/2014 EXTRACORPOREAL SHOCK WAVE LITHOTRIPSY CYSTOSCOPY W/ LASER LITHOTRIPSY 06/07/2013 - 06/06/2014 RESTORATIVE PROCTOCOLECTOMY 06/07/2001 - 06/06/2002 w/J-pouch Medical History Medical History Date Comments Ulcerative colitis without complications (HCC) 2 000 Parkinson's disease (HCC) HTN (hypertension) Family history of pseudocholinesterase deficienc y son BPH (benign prostatic hyperplasia) Family History Medical History Relation Name Comments No Known Problems Daughter 1 No Known Problems Daughter 2 Cancer Father Parkinsonism Father Heart disease Mother No Known Problems Sister 1 No Known Problems Sister 2 No Known Problems Sister 3 No Known Problems Son 1 No Known Problems Son 2 Tremor Neg Hx Relation Name Status Comments Daughter 1 Alive Daughter 2 Alive Father Mother Sister 1 Alive Sister 2 Alive Sister 3 Alive Son 1 Alive Son 2 Alive Social History Tobacco Use Types Packs/Day Years Used Date Smoking Tobacco: Never Smokeless Tobacco: Never Tobacco Cessation:Counseling Given: Not Answered Alcohol Use Standard Drinks/Week Comments Never 0 (1 standard drink = 0.6 oz pur e alcohol) OASIS D0700: Social Isolation Answer Da te Recorded Frequency of experiencing loneliness or isolatio n Never 08/21/2024 AUDIT-C Answer Date Recorded Q1: How often do you have a drink containing alcohol? Never 12/29/2024 Q2: How many drinks containi ng alcohol do you have on a typical day when you are drinking? Patient does not drink Q3: How often do you have si x or more drinks on one occasion? Never 12/29/2024 Personal Safety Answer Date Recorded Have you ever been in or are you currently in a harmful physical or emotional relationship or is someone making you feel afraid or unsafe? 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 on file Not on file Not on angelina e Obstetrics History Last Filed Vital Signs Vital Sign Reading Time Taken Comments Blood Pressure 139/80 01/18/2025 12:45 PM CDT Pulse 59 01/18/2025 12:45 PM CDT Temperature 36.6 C (97.9 F) 01/18/2025 12:45 PM CDT Respiratory Rate 16 01/18/2025 12:45 PM CDT Oxygen Saturation 98% 01/18/2025 12:45 PM CDT Inhaled Oxygen Concentration - - Weight 53.1 kg (117 lb) 01/18/2025 9:08 AM CDT Height 152.4 cm (5') 01/18/2025 9:08 AM CDT Body Mass Index 22.85 01/18/2025 9:08 AM CDT Plan of Treatment Health Maintenance Due Date Last Done Comments DTaP/Tdap/Td Vaccine (1 - Tdap) 1951 Well Visit 65+ 2006 Covid-19 Vaccine (2023-2 5 season) 2024 02/23/2022, 09/15/2021, 04/01/2021, Additional history exists Influenza Vaccine (#1) 2025 , 02/23/2022, 03/07/2021, Additional history exists Depression Screening 07/20/2025 07/20/2024 Fall Risk Assessment 12/29/2025 12/29/2024 Pneumococcal vaccine 65+ Completed 017, 03/08/2017, 04/21/2016, Additional history exists Zoster Vaccine Completed 10/10/2018, 05/07, 05/16/2018, Additional history exists Hepatitis B Screening Completed 12/30/2023 Medical Devices Implanted Type Area Capacitor Assembler Device Identifier Shelf Expiration Date Model / Serial / Lot Shoulder Right: Shoulder Procedures Procedure Name Priority Date/Time Associated Diagnosis Comments T-SPOT.TB Routine 01/18/2025 10:00 AM CDT SCAN - LABS 01/18/2025 12:00 AM CDT SCAN - LABS 01/03/2025 12:00 AM CDT US ENDOSCOPIC IP Routine 12/29/2024 9:55 AM CDT Weight loss, unintentional Dilation of biliary tract UPPER EUS 12/29/2024 9:25 AM CDT EGFR Routine 12/07/2024 9:30 AM CDT DIFFERENTIAL AUTO Routine 12/07/2024 9:3 0 AM CDT CRP (ACUTE PHASE) Routine 12/07/2024 9:3 0 AM CDT CBC WITH AUTO DIFFERENTIAL Routine 12/07/2024 9:30 AM CDT GLUCOSE, RANDOM (OUTREACH) Routine 12/07/2024 9:30 AM CDT COMPREHENSIVE METABOLIC PANEL WITHOUT GLUCOSE (OUTREACH) Routine 12/07/2024 9:30 AM CDT HEPATITIS B SURFACE ANTIBODY (IMMUNE STATUS) Routine 12/07/2024 9:30 AM CDT SCAN - LABS 12/05/2024 12:00 AM CDT from Last 3 Months Results * T-SPOT.TB Blood (01/18/2025 10:00 AM CDT) [facility] T-SPOT.TB Negative SeeBelow Comment: Normal Value: Negative A negative test result does not exclude the possibility of exposure to or infection with Mycobacterium tuberculosis (M. tuberculosis). Patients with recent exposure to TB infected individuals exhibiting a negative T-SPOT.TB result should be considered for retesting within 6 weeks or if other relevant clinical symptoms indicate. Results from T-SPOT.TB testing must be used in conjunction with each individual's epidemiological history, current medical status, and results of other diagnostic evaluations. The T-SPOT.TB test is qualitative and results are reported as positive, borderline or negative, given that the test controls perform as expected. In line with the Centers for Disease Control and Prevention's 2010 recommendation to report quantitative measurements alongside the qualitative result, the laboratory provides spot counts for informational purposes only. The T-SPOT.TB test should not be interpreted as a quantitative test. T-SPOT.TB Panel A Spot Count 1 [facility] T-SPOT.TB Panel B Spot Count 1 [facility] T-SPOT.TB Negative Control Passed [facility] T-SPOT.TB Positive Control Passed [facility] Comment: Test Performed at: [facility] [place] [address] [place] [address] JOSELUIS LONDONO,PHD Blood 01/18/2025 10:0 0 AM CDT 01/18/2025 1:59 PM CDT us Fany Kaye MD PhD LAB MICROBIOLOGY - GENERA L ORDERABLES Final Result [facility] Department [place] [address] * SCAN - LABS (01/18/2025 12:00 AM CDT) us Provider Scanning Final Result * SCAN - LABS (01/03/2025 12:00 AM CDT) us Provider Scanning Final Result * Upper EUS (12/29/2024 9:25 AM CDT) Anatomical Region Laterality Modality Other Narrative Procedure Note Aydin Tam MD - 12/29/2024 9:25 AM CDT GI ENDOSCOPY [facility] Patient Name: Angel Antoine Procedure Date: 12/29/2024 9:25 AM Date of : 1940 Admit Type: Outpatient Age: 84 Gender: Male Attending MD: Aydin Tam M.D., Room: [facility] ENDOSCOPY ROOM 2 Note Status: Finalized Procedure: Upper EUS Indications: Common bile duct dilation (etiology unknown) seenon CT scan, Dilated pancreatic duct on CT scan Referring MD: Eliane Torres PA-C Providers: Aydin Tam M.D., Scout Amaya M.D. Medicines: Monitored Anesthesia Care Complications: No immediate complications. Estimated blood loss: Minimal. Estimated Blood Loss: Estimated blood loss was minimal. Procedure: Pre-Anesthesia Assessment: - Prior to the procedure, a History and Physicalwas performed, and patient medications, allergies and sensitivities were reviewed. The patient'stolerance of previous anesthesia was reviewed. - The risks and benefits of the procedure and the sedation options and risks were discussed with the patient. All questions were answered and informed consent was obtained. - Immediately prior to administration ofmedications, the patient was re-assessed for adequacy to receive sedatives. The risks, benefits and alternatives were discussed and informed consent was obtained.The Olympuscurved linear array therapeutic [id number] was introduced through the mouth, and advanced tothe second part of duodenum The GIF [id number] endoscope was introduced through the mouth, and advanced to the second part of duodenum The upperEUS was accomplished without difficulty. The patient tolerated the procedure well. Findings: ENDOSCOPIC FINDING: : The examined esophagus was normal. The entire examined stomach was normal. A large non-bleeding diverticulum was found in the second portion ofthe duodenum, adjacent to the papilla. The major papilla was protrudingand prominent. The duodenal bulb and 2nd part of duodenum were otherwise unremarkable. ENDOSONOGRAPHIC FINDING: : The esophagus, stomach and duodenum were examinedendosonographically. There was dilation in the common bile duct which measured up to 15.6mm. There were no sludge, stones, or mass lesions. The pancreatic duct had a dilated endosonographic appearance in themain pancreatic duct. The pancreatic duct measured up to 5.8 mm indiameter. There was no discrete cysts or masses in the head of the pancreas The dilation of the pancreatic duct was diffuse. There was no sign of significant endosonographic abnormality in the entire pancreas otherwise. The pancreas was well visualized. There was no sign of significant endosonographic abnormality in the ampulla. No pathologic lymphadenopathy, no masses and no wallthickening were identified. No lymphadenopathy seen. Impression: EGD: - Normal esophagus. - Normal stomach. - Non-bleeding duodenal diverticulum. EUS: - Significantly dilated CBD and PD, but without concern for mass or stone obstruction. Etiology of dilation possibly due to presence of large diverticulum and age-related changes. Recommendation: - Discharge patient to home (ambulatory). - Resume previous diet. - Continue present medications. - Return to referring physician as previously scheduled. - MRCP in 6 months for surveillance. Attending Participation: I was present and participated during the entire procedure, including non-royal portions. Electronically signed by Aydin Tam M.D. Aydin Tam M.D. 12/29/2024 10:47:08 AM . Number of Addenda: 0 Note Initiated On: 12/29/2024 9:25 AM us Aydin Tam MD ENDOSCOPY PROCEDURES Final Result * Glucose, random (Outreach) (12/07/2024 9:30 AM CDT) Glucose 97 70 - 199 mg/dL Comment: Interpretive Data Fasting glucose >/= 126 mg/dl is diagnostic for diabetes. Fasting is defined as no caloric intake for at least 8 hours. Fasting glucose between 100 mg/dl to 125 mg/dl is diagnostic of prediabetes. In a patient with classic symptoms of hyperglycemia or hyperglycemic crisis, a random glucose >/= 200 mg/dl is diagnostic for diabetes. In the absence of unequivocal hyperglycemia, results should be confirmed by repeat testing. The classification and Diagnosis of Diabetes Diabetes Care 202; 46: S19-S40. Current interpretive data was last revised 2022. Blood 12/07/2024 9:30 AM CDT 12/07/2024 2:14 PM CDT us Fany Kaye MD PhD LAB BLOOD ORDERABLES Natty l Result Performing Organization Address City/[facility]/ZIP Co de Phone Number [facility] Department [place] [address] * eGFR (12/07/2024 9:30 AM CDT) eGFR 76 >=60 mL/min/1. 73 m2 Comment: Interpretive Data Reference Interval Normal >/= 90 mL/min/1.73m2 Mildly decreased* 60 - 89 mL/min/1.73m2 Mildly to moderately decreased 45 - 59 mL/min/1.73m2 Moderately to severely decreased 30 - 44 mL/min/1.73m2 Severely decreased 15 - 29 mL/min/1.73m2 Kidney Failure < 15 mL/min/1.73m2 *Relative to young adult level Estimated glomerular filtration rate is determined by the 2020 CKD-EPI equation recommended by the National Kidney Foundation (A Unifying Approach to GFR Estimation: Recommendations of the NKF-ASK Task Force on Reassessing the Inclusion of Race in Diagnosing Kidney Disease, JASN 2020). The CKD-EPI equation should not be used for patients with unstable renal function and has not been validated in children and those over 70. Current interpretive data was last reviewed 2021. Blood 12/07/2024 9:30 AM CDT 12/07/2024 2:25 PM CDT us Fany Kyae MD PhD LAB BLOOD ORDERABLES Natty l Result [facility] Department [place] [address] * Differential, auto (12/07/2024 9:30 AM CDT) Neutrophil abs 5.13 1.50 - 6.50 K/cumm Imm gran abs 0.03 0.00 - 0.10 K/cumm [facility] Lymphocyte abs 1.35 0.80 - 3.30 K/cumm [facility] Monocyte abs 0.74 0.20 - 0.80 K/cumm [facility] Eosinophil abs 0.40 0.00 - 0.50 K/cumm [facility] Basophil abs 0.05 0.00 - 0.10 K/cumm [facility] Neutrophil pct 66.7 % [facility] Comment: Interpretive Data Percent cell count reference ranges are not reported, since discordance with absolute values may lead to misinterpretation of CBC data. Current Interpretive Data was last revised on 2017. Imm gran pct 0.4 % [facility] Comment: Interpretive Data Percent cell count reference ranges are not reported, since discordance with absolute values may lead to misinterpretation of CBC data. Current Interpretive Data was last revised on 2017. Lymphocyte pct 17.5 % [facility] Comment: Interpretive Data Percent cell count reference ranges are not reported, since discordance with absolute values may lead to misinterpretation of CBC data. Current Interpretive Data was last revised on 2017. Monocyte pct 9.6 % [facility] Comment: Interpretive Data Percent cell count reference ranges are not reported, since discordance with absolute values may lead to misinterpretation of CBC data. Current Interpretive Data was last revised on 2017. Eosinophil pct 5.2 % [facility] Comment: Interpretive Data Percent cell count reference ranges are not reported, since discordance with absolute values may lead to misinterpretation of CBC data. Current Interpretive Data was last revised on 2017. Basophil pct 0.6 % [facility] Comment: Interpretive Data Percent cell count reference ranges are not reported, since discordance with absolute values may lead to misinterpretation of CBC data. Current Interpretive Data was last revised on 2017. Blood 12/07/2024 9:30 AM CDT 12/07/2024 2:14 PM CDT Fany Kaye MD PhD LAB BLOOD ORDERABLES Natty jaen Result Performing Organization Address [facility]/ZIP Co de Phone Number [facility] Department [place] [address] * (ABNORMAL) Comprehensive metabolic panel, without glucose (Outreach) (12/07/2024 9:30 AM CDT) Sodium 138 135 - 145 mmol/L Potassium, pl 3.8 3.3 - 4.9 mmol/L [facility] Chloride 100 97 - 110 mmol/L [facility] CO2 28 22 - 32 mmol/L [facility] Anion gap 10 2 - 15 mmol/L [facility] BUN 27(H) 6 - 25 mg/dL [facility] Creatinine 0.99 0.80 - 1.30 mg/dL [facility] Calcium 9.2 8.5 - 10.3 mg/dL [facility] Protein, pl 8.1 6.5 - 8.5 g/dL [facility] Albumin 3.8 3.5 - 5.0 g/dL [facility] Bilirubin, total 1.0 0.1 - 1.2 mg/dL [facility] Alk phos 181(H) 40 - 130 Units/L [facility] AST 44 10 - 50 Units/L [facility] ALT 23 7 - 55 Units/L [facility] Blood 12/07/2024 9:30 AM CDT 12/07/2024 2:14 PM CDT Fany Kaye MD PhD LAB BLOOD ORDERABLES Natty l Result Performing Organization Address City/[facility]/ZIP Co de Phone Number [facility] Department [place] [address] * CBC with auto differential (12/07/2024 9:30 AM CDT) WBC 7.70 3.80 - 9.90 K/cumm Hgb 13.4 13.0 - 17.5 g/dL [facility] Hct 40.8 38.9 - 50.3 % [facility] Plt 205 150 - 400 K/cumm [facility] MPV 10.4 9.1 - 12.3 fL [facility] RBC 4.72 4.30 - 5.80 M/cumm [facility] MCV 86.4 81.3 - 96.4 fL [facility] MCH 28.4 27.1 - 33.3 pg [facility] MCHC 32.8 32.3 - 35.7 g/dL [facility] RDW CV 13.9 11.1 - 14.9 % [facility] RDW SD 43.5 35.7 - 48.1 fL [facility] NRBC abs 0.00 0.00 - 0.01 K/cumm [facility] Blood 12/07/2024 9:30 AM CDT 12/07/2024 2:14 PM CDT us Fany Kaye MD PhD LAB BLOOD ORDERABLES Natty l Result Performing Organization Address City/[facility]/ZIP Co de Phone Number [facility] [place] [address] * Hepatitis B surface antibody (immune status) Blood (12/07/2024 9:30 AM CDT) Pathologist [facility] HBsAb (immune status) Nonreactive Comment:This result is consi stent with a lack of immunity to Hepatitis B Virus when used in the setting of routine screening. Current interpretative data was last revised on 22 Blood 12/07/2024 9:30 AM CDT 12/07/2024 2:15 PM CDT Fany Kaye MD PhD LAB MICROBIOLOGY - GENERA L ORDERABLES Final Result [facility] [place] [address] * CRP (acute phase) (12/07/2024 9:30 AM CDT) CRP 9.2 <=10.0 mg/L Blood 12/07/2024 9:30 AM CDT 12/07/2024 2:14 PM CDT us Fany Kaye MD PhD LAB BLOOD ORDERABLES Natty l Result [facility] [place] [address] * SCAN - LABS (12/05/2024 12:00 AM CDT) us Provider Scanning Edited Result - Final from Last 3 Months Insurance [facility] MEDICARE [facility] MEDICARE ADVANTAGE [facility] Address: [address] [address] [place] [address] [facility] MEDICARE [id number] [place] [address] MEDICARE Advance Directives For more information, please contact: [phone] * Full Code (Latest Code Status on File) Date Activated Date Inactivated Comments 07/17/2024 1:06 PM 07/17/2024 7:45 PM * Full Code Date Activated Date Inactivated Comments 11/04/2021 7:43 AM 11/08/2021 5:34 PM * Full Code Date Activated Date Inactivated Comments 10/31/2021 11:34 AM 10/31/2021 5:32 PM * Full Code Date Activated Date Inactivated Comments 07/22/2018 12:17 PM 07/22/2018 6:13 PM Care Teams [employer] Builder Relationship Specialty Start Date End Date MansiHumphrey osorio PCP - General Family Medicine 02/02/22 Fany Kaye MD PhD [address] [facility][1] GASTROENTEROLOGY, [address] [address] PCP - Home Infusion Attending Gastroenterology 10/28/24 Nuzhat Savage MD [address] [place] [address] Referring Physician Gastroenterology 01/21/23 Anuj Altman, [facility] Pharmacist Pharmacy 10/30/24 Rosemarie Randle, RN Home Infusion Nursing 11/02/24
--- OUTSIDE RECORDS SUMMARY | 2025-01-23 10:08 | XMS_ITS ---
Author Organization [facility] Address [address] [place] [address] Care Team Providers Care Senior Premium Auditor Name Role Phone Humphrey Elise DO Primary Care Provider [phone] Nuzhat Savage MD Unavailable + [phone] Fany Kaye MD PhD Unavailable [phone] Anuj Altman [facility] Unavailable UnavailRosemarie Carrillo RN Unavailable Unavailable [facility] Special[facility] The[facility] - Renflexis 500 mg IV Every 6 Weeks Status:Enrolled (Active) Start date:10/13/2024 Enrollment date:10/13/2024 Linked medications:infliximab-abda (Active) Related program episode:Home Infusion (Active) Overview Cutover complete Case Team Name Relationship Phone Rosemarie Randle RN Home Infusion Nursing Anuj Altman [facility](Responsible Staff) Pharma cist Continued Care and Services Coordination This section includes services coordinated for [facility] - Renflexis 500 mg IV Every6 Weeks. Home Medical Care Name Services Phone [facility] Home Infusion Therapy Home Infusion and Inje ction
--- OUTSIDE RECORDS SUMMARY | 2025-01-23 10:08 | XMS_ITS | Encounter Summary ---
Author Organization [facility] Address [address] [place] [address] Phone Care Team Providers Care Grinder Dresser Name Role Phone Humphrey Elise DO Primary Care Provider [phone] Nuzhat Savage MD Unavailable [phone] Fany Kaye MD PhD Unavailable [phone] Anuj Altman [facility] Unavailable Unavaila Rosemarie Villa RN Unavailable Unavailable Encounter Details Date Type Department Care Team (Latest Contact Info) Description 12/07/2024 Results Follow-Up [facility] [address] [facility] [address] [place] [address] Fany Kaye MD PhD [address] [place], [place] [address] Comprehensive metabolic panel, without glucose (Outreach), Glucose, random (Outreach), CBC with auto differential, Additional followed-up results: 4 Social History Tobacco Use Types Packs/Day Years Used Date Smoking Tobacco: Never Smokeless Tobacco: Never Alcohol Use Standard Drinks/Week Comments Never 0 (1 standard drink = 0.6 oz pur e alcohol) OASIS D0700: Social Isolation Answer Da te Recorded Frequency of experiencing loneliness or isolatio n Never 08/21/2024 AUDIT-C Answer Date Recorded Q1: How often do you have a drink containing alcohol? Never 07/17/2024 Q2: How many drinks containi ng alcohol do you have on a typical day when you are drinking? Patient does not drink Q3: How often do you have si x or more drinks on one occasion? Never 07/17/2024 Personal Safety Answer Date Recorded Have you ever been in or are you currently in a harmful physical or emotional relationship or is someone making you feel afraid or unsafe? 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 Not on file Not on angelina e documented as of this encounter Plan of Treatment Not on file documented as of this encounter Visit Diagnoses Not on filedocumented in this encounter Care Teams Grinder Dresser Relationship Specialty Start Date End Date Humphrey Elise DO PCP - General Family Medicine 02/02/22 Fany Kaye MD PhD [address] [facility], [address] [address] PCP - Home Infusion Attending Gastroenterology 10/28/24 Nuzhat Savage MD [address] [place] [address] Referring Physician Gastroenterology 01/21/23 Anuj Altman, [facility] Pharmacist Pharmacy 10/30/24 Rosemarie Randle, JOSE ALFREDO Home Infusion Nursing 11/02/24 documented as of this encounter
--- OUTSIDE RECORDS SUMMARY | 2025-01-23 10:08 | XMS_ITS | Encounter Summary ---
Author Organization [facility] Address [address] [place] [address] Care Team Providers Care Splitter Head Name Role Phone Humphrey Elise Primary Care Provider [phone] Nuzhat Savage MD Unavailable [phone] Fany Kaye MD PhD Unavailable + Anuj Altman [facility] Unavailable Unavaila Rosemarie Villa RN Unavailable Unavailable Encounter Details Date Type Department Care Team (Late st Contact Info) Description 01/22/2025 Home Infusion [facility] Home Infusion Therapy [address] [place] [address] Anuj Altman [facility] Social History Tobacco Use Types Packs/Day Years [...] on file 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 Gender Identity Male 02/27/2019 7:59 AM CDT Sexual Orientation Not on file 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 Not on file Not on angelina e documented as of this encounter Plan of Treatment Not on file documented as of this encounter Visit Diagnoses Not on filedocumented in this encounter Care Teams Splitter Head Relationship Specialty Start Date End Date Humphrey Elise DO PCP - General Family Medicine 02/02/22 Fany Kaye MD PhD [address] [facility], [address] [address] PCP - Home Infusion Attending Gastroenterology 10/28/24 Nuzhat Savage MD [address] [place] [address] Referring Physician Gastroenterology 01/21/23 Anuj Altman, [facility] Pharmacist Pharmacy 10/30/24 Rosemarie Randle, JOSE ALFREDO Home Infusion Nursing 11/02/24 documented as of this encounter
--- OUTSIDE RECORDS SUMMARY | 2025-01-23 10:08 | XMS_ITS | Encounter Summary ---
Author Organization [facility] Address [address] [place] [address] Phone Care Team Providers Care Lawn Caretaker Name Role Phone Humphrey Elise DO Primary Care Provider [phone] Nuzhat Savage MD Unavailable [phone] Fany Kaye MD PhD Unavailable [phone] Anuj Altman [facility] Unavailable Unavaila Rosemarie Villa RN Unavailable Unavailable Encounter Details Date Type Department Care Team (Late st Contact Info) Description 09/09/2024 Orders Only [facility] Scanning, Provider Social History Tobacco Use Types Packs/Day Years [...] on file 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 Gender Identity Male 02/27/2019 7:59 AM CDT Sexual Orientation Not on file 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 Not on angelina e documented as of this encounter Plan of Treatment Not on file documented as of this encounter Procedures Procedure Name Priority Date/Time Associated Diagnosis Comments SCAN - RADIOLOGY/IMAGING 09/09/2024 documented in this encounter Results * SCAN - RADIOLOGY/IMAGING (09/09/2024) Anatomical Region Laterality Modality Other us Provider Scanning Final Result documented in this encounter Visit Diagnoses Not on filedocumented in this encounter Care Teams Lawn Caretaker Relationship Specialty Start Date End Date Humphrey Elise DO PCP - General Family Medicine 02/02/22 Fany Kaye MD PhD [address] [facility], [address] [address] PCP - Home Infusion Attending Gastroenterology 10/28/24 Nuzhat Savage MD [address] [place] [address] Referring Physician Gastroenterology 01/21/23 Anuj Altman, [facility] Pharmacist Pharmacy 10/30/24 Rosemarie Randle, RN Home Infusion Nursing 11/02/24 documented as of this encounter
--- OUTSIDE RECORDS SUMMARY | 2025-01-23 10:08 | XMS_ITS | Encounter Summary ---
Author Organization [facility] [place] [facility] Address [address] [place] [address] Phone Care Team Providers Care Promotions Representative Name Role Phone Humphrey Elise DO Primary Care Provider [phone] Nuzhat Savage MD Unavailable [phone] Fany Kaye MD PhD Unavailable [phone] Anuj Altman [facility] Unavailable Unavaila Rosemarie Villa RN Unavailable Unavailable Encounter Details Date Type Department Care Team (Late st Contact Info) Description 09/09/2024 Orders Only [facility] Scanning, Provider Social History Tobacco Use Types [...] on file 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 Gender Identity Male 02/27/2019 7:59 AM CDT Sexual Orientation Not on file 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 Not on file Not [...] on filedocumented in this encounter Care Teams Promotions Representative Relationship Specialty Start Date End Date Humphrey Elise DO PCP - General Family Medicine 02/02/22 Fany Kaye MD PhD [address] [facility], [address] [address] PCP - Home Infusion Attending Gastroenterology 10/28/24 Nuzhat Savage MD [address] [place] [address] Referring Physician Gastroenterology 01/21/23 Anuj Altman, [facility] Pharmacist Pharmacy 10/30/24 Rosemarie Randle, JOSE ALFREDO Home Infusion Nursing 11/02/24 documented as of this encounter
--- OUTSIDE RECORDS SUMMARY | 2025-01-23 10:08 | XMS_ITS | Clinical Summary ---
Author Organization [facility] Address [address] [place] [address] Care Team Providers Care Acquisitions Analyst Name Role Phone Humphrey Elise DO Primary Care Provider [phone] Social History Tobacco Use Types Packs/Day Years Used Date Smoking Tobacco: Never Assessed Sex and Gender Information Value Date Recorded Sex Assigned at Not on file Legal Sex Male 9:17 AM CDT Gender Identity Not on file Sexual Orientation Not on file Plan of Treatment Health Maintenance Due Date Last Done Comments DTaP, Tdap and Td Vaccines (1 - Tdap) 1959 Annual Medicare Wellness Visit 2006 RSV Immunization or 60+ Years (1 - 1-dose 75+ series) 2016 COVID-19 Vaccine ( season) 2024 02/25/2023, 02/23/2022, 09/15/2021, Additional history exists Pneumococcal Vaccine: 50+ Years Completed 04/21/2017, 03/08/2017, 04/21/2016, Additional history exists Zoster Vaccines Completed 10/11/2018, 05/07, 03/30/2013 Meningococcal B Vaccine Aged Out No l onger eligible based on patient's age to complete this topic Meningococcal Vaccine Aged Out No esha medardo eligible based on patient's age to complete this topic RSV Immunizations Under 20 Months Aged Out No longer eligible based on patient's age to complete this topic Insurance [facility] Care Teams Acquisitions Analyst Relationship Specialty Start Date End Date Humphrey Elise DO [address] [place] [address] [address] PCP - General FAMILY PRACTICE 04/02/23
--- OUTSIDE RECORDS SUMMARY | 2025-01-23 10:08 | XMS_ITS | Encounter Summary ---
Author Organization [facility] Address [address] [place] [address] Phone Care Team Providers Care Sander Setter Name Role Phone Joel Polanco MD Primary Care Provider [phone] Reason for Visit * Reason Comments Med Refill Encounter Details Date Type Department Care Team (Late st Contact Info) Description 05/23/2021 Refill [facility] Nephrology and Hypertension [address] [facility], [address] [place] [address] Alan Duran MD [address] [facility], SUITE [facility] [place] [address] Social History Tobacco Use Types Packs/Day Years Used Date Smoking Tobacco: Never Smokeless Tobacco: Never Alcohol Use Standard Drinks/Week Comments No 0 (1 standard drink = 0.6 oz pur e alcohol) AUDIT-C Answer Date Recorded Frequency of Alcohol Consumption Never 11/05/2018 Average Number of Drinks Not on file 019 Frequency of Binge Drinking Not on file 06/2018 Sex and Gender Information Value Date Recorded Sex Assigned at Not on file Legal Sex Male 9:05 AM MST Gender Identity Not on file Sexual Orientation Not on file documented as of this encounter Miscellaneous Notes * Telephone Encounter - Liz Harrison MA - 05/26/2021 3:27 PM CST Pt's asks you to order refill of hydrochlorothiazide through [facility] Tim Garcia as listed in chart. documented in this encounter Plan of Treatment Not on file documented as of this encounter Visit Diagnoses Not on filedocumented in this encounter Care Teams Sander Setter Relationship Specialty Start Date End Date Joel Polanco MD [address] [place] [address] PCP - General Family Medicine 11/09/18 documented as of this encounter
--- OUTSIDE RECORDS SUMMARY | 2025-01-23 10:08 | XMS_ITS | Encounter Summary ---
Author Organization [facility] Address 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
--- OUTSIDE RECORDS SUMMARY | 2025-01-23 10:08 | XMS_ITS | Clinical Summary ---
Author Organization [facility] Address [address] [place] [address] Phone Care Team Providers Care Recreation Adviser Name Role Phone Joel Polanco MD Primary Care Provider [phone] Allergies Active Allergy Reactions Criticality Noted Date Comments Penicillins 06/28/2006 Other reaction(s): Unknown Medications mirtazapine (REMERON) 15 MG tablet 1 tablet (15 mg) orally daily at bedtime 0 03/10/2017 Active propranolol LA (INDERAL LA) 60 MG 24 hr capsule 08/12/2014 Active tamsulosin (FLOMAX) 0.4 MG 24 hr capsule 08/12/2014 Activ e loperamide (IMODIUM A-D) 2 MG capsule 1 tid 0 03/10/2017 Active nutrtional drink (BOOST) liquid 1 can daily 0 03/10/2017 Active acetaminophen-c odeine (TYLENOL/CODEIN E #3) 300-30 MG per tablet as needed 0 09/09/2016 Active Multiple Vitamins-Minera ls (MULTIVITAMIN ADULT) tablet 1 daily 0 03/10/2017 Activ e fish oil (OMEGA-3) 500 MG capsule Active finasteride (PROSCAR) 5 MG tablet TK 1 T PO D 10/22/2017 Active gabapentin (NEURONTIN) 300 MG capsule 10/18/2019 Active famotidine (PEPCID) 40 MG tablet Take 1 tab PO 30 minutes before lunch and before dinner 11/14/2019 Active rosuvastatin (CRESTOR) 5 MG tablet 03/11/2020 Active traZODone (DESYREL) 50 MG tablet 05/16/2020 Active Simbrinza 1-0.2 % suspension 1 GTT BID OD ONLY 03/31/2020 Active Zioptan 0.0015 % solution INSTILL 1 DROP INTO AFFECTED EYE(S) ONCE DAILY DIRECTED 10/31/2020 Active carbidopa-levod opa (SINEMET) 25-250 MG per tablet TAKE 1 TABLET BY MOUTH 4 TIMES DAILY 11/11/2021 Active potassium citrate (UROCIT-K) 10 MEQ (1080 MG) CR tablet TAKE 2 BY MOUTH TWICE DAILY 360 tablet 12/10/2021 Active allopurinol (ZYLOPRIM) 300 MG tablet Take 1 tablet (300 mg total) by mouth 1 (one) time each day 90 tablet 3 04/13/2022 Active hydroCHLOROthia zide (HYDRODIURIL) 25 MG tablet Take 1 tablet by mouth once daily 90 tablet 06/01/2022 Active Active Problems Problem Noted Date Diagnosed Date Small bowel obstruction 11/04/2021 Calculus of kidney 06/18/2014 Essential (primary) hypertension 06/18/2014 Parkinson's disease 06/18/2014 Other ulcerative colitis without complication Rheumatic fever without heart involvement 2014 Other and unspecified hyperlipidemia 06/18/2014 Overview (08/20/2018): Converted unresolved ICD9, potential mismatch. Immunizations Immunization Administration Dates Next Due Influenza Split High Dose Pr eservative Free IM 02/20/2018 Influenza TIV (IM) 03/21/2022,03/07/2021, 020 Influenza Trivalent Adjuvanted 03/02/2019 Pneumococcal Conjugate 13-Valent 04/21/2016 Pneumococcal Polysaccharide 04/21/2017 Zoster Recombinant 10/10/2018,05/17/2018, 018 Family History Medical History Relation Comments Malignant neoplastic disease Father Heart disease Mother Kidney disease Neg Hx Kidney stone Neg Hx Relation Status Comments Father Mother Social History Tobacco Use Types Packs/Day Years [...] on file Legal Sex Male 9:05 AM [facility] Gender Identity Not on file Sexual Orientation Not on file Last Filed Vital Signs Vital Sign Reading Time Taken Comments Blood Pressure 118/80 05/25/2022 8:47 AM MEDICATION RECONCILIATION TECHNICIAN Pulse 72 05/25/2022 8:47 AM MEDICATION RECONCILIATION TECHNICIAN Temperature 35.9 C (96.7 F) 05/25/2022 8:47 AM MEDICATION RECONCILIATION TECHNICIAN Respiratory Rate - - Oxygen Saturation - - Inhaled Oxygen Concentration - - Weight 60.3 kg (133 lb) 05/25/2022 8:47 AM MEDICATION RECONCILIATION TECHNICIAN Height 162.6 cm (5' 4) 05/25/2022 8:47 AM MEDICATION RECONCILIATION TECHNICIAN Body Mass Index 22.83 05/25/2022 8:47 AM MEDICATION RECONCILIATION TECHNICIAN Plan of Treatment Health Maintenance Due Date Last Done Comments Influenza Vaccine (#1) 2025 2, 03/07/2021, 02/21/2020, Additional history exists Pneumococcal PPSV23/PCV13 65 + Years / High and Highest Risk Completed 04/21/2017, 04/21/2016 Insurance [employer] Care Teams Recreation Adviser Relationship Specialty Start Date End Date Joel Polanco MD [address] [place] [address] PCP - General Family Medicine 11/09/18
--- OUTSIDE RECORDS SUMMARY | 2025-01-23 10:08 | XMS_ITS | Encounter Summary ---
Author Organization [facility] [place] [facility] Address [address] [place] [address] Phone Care Team Providers Care Buckle Stapler Name Role Phone Humphrey Elise DO Primary Care Provider [phone] Nuzhat Savage MD Unavailable [phone] Fany Kaye MD PhD Unavailable [phone] An[facility]man [facility] Unavailable Unavaila Rosemarie Villa RN Unavailable Unavailable Encounter Details Date Type Department Care Team (Late st Contact Info) Description 11/24/2023 Orders Only [facility] Scanning, Provider Social History Tobacco Use Types Packs/Day Years Used Date Smoking Tobacco: Never Smokeless Tobacco: Never Alcohol Use Standard Drinks/Week Comments Never 0 (1 standard drink = 0.6 oz pur e alcohol) OASIS D0700: Social Isolation Answer Da te Recorded Frequency of experiencing loneliness or isolatio n Never 08/30/2023 AUDIT-C Answer Date Recorded Q1: How often do you have a drink containing alcohol? Never 01/20/2023 Q2: How many drinks containi ng alcohol do you have on a typical day when you are drinking? Patient does not drink Frequency of Binge Drinking Not on file 01/05 Personal Safety Answer Date Recorded Have you ever been in or are you currently in a harmful physical or emotional relationship or is someone making you feel afraid or unsafe? 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 Not on angelina e documented as of this encounter Plan of Treatment Not on file documented as of this encounter Procedures Procedure Name Priority Date/Time Associated Diagnosis Comments SCAN - LABS 11/24/2023 documented in this encounter Results * SCAN - LABS (11/24/2023) us Provider Scanning Final Result documented in this encounter Visit Diagnoses Not on filedocumented in this encounter Care Teams Buckle Stapler Relationship Specialty Start Date End Date Humphrey Elise DO PCP - General Family Medicine 02/02/22 Fany Kaye MD PhD [address] [facility], [address] [address] PCP - Home Infusion Attending Gastroenterology 10/28/24 Nuzhat Savage MD [address] [place] [address] Referring Physician Gastroenterology 01/21/23 Anuj Altman, [facility] Pharmacist Pharmacy 10/30/24 Rosemarie Randle, JOSE ALFREDO Home Infusion Nursing 11/02/24 documented as of this encounter
--- OUTSIDE RECORDS SUMMARY | 2025-01-23 10:08 | XMS_ITS ---
Author Organization [facility] Address [address] [place] [address] Care Team Providers Care Wash Rack Operator Name Role Phone MansiHumphrey osorio Primary Care Provider [phone] Nuzhat Savage MD Unavailable [phone] Fany Kaye MD PhD Unavailable [phone] Anuj Altman [facility] Unavailable UnavailRosemarie Carrillo RN Unavailable Unavailable Home Infusion Status:Enrolled (Active) Start date:10/13/2024 Enrollment date:10/13/2024 Related service episodes:[facility] Specialty Therapies - Renflexis 500 mg IV Every 6 Weeks (Active) Overview Cutover complete. Zarina Rossi RN 10/28/2024 7:55 PM Case Team Name Relationship Phone Rosemarie Randle RN(Responsible Staff) Home Infu tee Nursing Continued Care and Services Coordination
--- OUTSIDE RECORDS SUMMARY | 2025-01-23 10:08 | XMS_ITS | Patient Health Record ---
Author Organization [email or web address] Address [address] [facility]. [address] [place] [address] Care Team Providers Care Hardness Tester Name Role Phone Pa Larsen MD Primary Care Provider Unavaila ble Reason For Referral No Information Plan Of Treatment No Information Insurance Providers Payer Name Payer Address Payer Phone Subscriber Number Group Number Insured Name Patient Relationship to Insured Coverage Start Date Coverage End Date [employer] Medicare Complete Hmo [address] [address] [place] [address] [id number] Angel Gutierrez i Self - patient is the insured
--- OUTSIDE RECORDS SUMMARY | 2025-01-23 10:08 | XMS_ITS | Clinical Summary ---
Author Organization [facility] Address [address] [place] [address] Phone Care Team Providers Care Electrical Contractor Name Role Phone Pa Larsen MD Primary Care Provider [phone] Allergies No known active allergies Medications DUTASTERIDE (AVODART ORAL) Take by mouth. Active quinapril (ACCUPRIL) 10 mg Oral tablet Take 10 mg by mouth daily. Active carbidopa-levodo pa (SINEMET) 25-100 mg Oral tablet Take 1 Tab by mouth 4 times daily. 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 Gender Identity Not on file Sexual Orientation Not on file Last Filed Vital Signs Vital Sign Reading Time Taken Comments Blood Pressure 138/73 03/18/2011 11:04 AM CDT Pulse 79 03/18/2011 11:04 AM CDT Temperature 36.5 C (97.7 F) 03/18/2011 10:35 AM CDT Respiratory Rate 18 03/18/2011 11:04 AM CDT Oxygen Saturation 99% 03/18/2011 11:04 AM CDT Inhaled Oxygen Concentration - - Weight 68 kg (150 lb) 03/18/2011 8:16 AM CDT Height 167.6 cm (5' 6) 03/18/2011 8:16 AM CDT Body Mass Index 24.21 03/18/2011 8:16 AM CDT Plan of Treatment Health Maintenance Due Date Last Done Comments DTAP/TDAP/TD VACCINES (1 - Tdap) 1960 PNEUMOCOCCAL VACCINE 50+ YEARS (1 of 1 - PCV) 04/08/19 91 ZOSTER VACCINE (1 of 2) 1991 RSV VACCINE (60+ or ) (1 - 1-dose 75+ series) 2016 INFLUENZA VACCINE (#1) 2025 Advance Directives For more information, please contact: [phone] * Full Code (Latest Code Status on File) Date Activated Date Inactivated Comments 03/18/2011 8:18 AM 03/19/2011 2:01 AM Care Teams Electrical Contractor Relationship Specialty Start Date End Date Pa Larsen MD [address] [place] [address] PCP - General Family Practice 03/16/11
--- OUTSIDE RECORDS SUMMARY | 2025-01-23 10:08 | XMS_ITS | Encounter Summary ---
Author Organization [facility] Address [address] [place] [address] Care Team Providers Care Creative Arts Music Therapist Name Role Phone Pa Larsen MD Primary Care Provider [phone] Encounter Details Date Type Department Care Team (Late st Contact Info) Description 11/24/2004 Outpatient Historical Division [facility] Neurology [address] [facility] [address] [address] Renzo Arriaga MD [address] [place] [address] Social History Tobacco Use Types Packs/Day Years Used Date Smoking Tobacco: Never Assessed Sex and Gender Information Value Date Recorded Sex Assigned at Not on file 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
== END 2025-01-23 09:48 | disposition home or self-care (01) ==
LOC: CHSIMG 09:48
PROVIDERS: PCP Internal Medicine; Visit Provider Clinical Nurse Specialist
DX: N63.15 Unspecified lump in the right breast, overlapping quadrants (principal); N63.25 Unspecified lump in the left breast, overlapping quadrants
CPT/HCPCS: 76642; 77061; 77065; G0279

== ENCOUNTER 2025-04-27 14:09 | Outpatient (CLI) | payer MEDICARE, SELFPAY ==
--- OUTSIDE RECORDS SUMMARY | 2025-04-27 14:11 | XMS_ITS | Encounter Summary ---
Author Organization [facility] Address 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
--- OUTSIDE RECORDS SUMMARY | 2025-04-27 14:11 | XMS_ITS | Encounter Summary ---
Author Organization [facility] Address 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
--- OUTSIDE RECORDS SUMMARY | 2025-04-27 14:12 | XMS_ITS | Encounter Summary ---
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
--- OUTSIDE RECORDS SUMMARY | 2025-04-27 14:12 | XMS_ITS | Patient Health Record ---
Author Organization [facility] Address [address] [facility]. [address] [place] [address] Care Team Providers Care Link Wire Fabric Machine Tender Name Role Phone Pa Larsen MD Primary Care Provider Unavaila ble Reason For Referral No Information Plan Of Treatment No Information Insurance Providers Payer Name Payer Address Payer Phone Subscriber Number Group Number Insured Name Patient Relationship to Insured Coverage Start Date Coverage End Date [employer] Medicare Complete [place] [address] [address] [place] [address] [phone] [id number] Angel Gutierrez i Self - patient is the insured
--- OUTSIDE RECORDS SUMMARY | 2025-04-27 14:12 | XMS_ITS | Clinical Summary ---
Author Organization [facility] Address [address] [place] [address] Phone Care Team Providers Care Performance Improvement Consultant Name Role Phone Joel Polanco MD Primary Care Provider [phone] Allergies Active Allergy Reactions Criticality Noted Date [...] on file Legal Sex Male 9:05 AM [facility] Gender Identity Not on file Sexual Orientation Not on file Last Filed Vital Signs Vital Sign Reading Time Taken Comments Blood Pressure 118/80 05/25/2022 8:47 AM SENIOR APPLICATION SECURITY CONSULTANT Pulse 72 05/25/2022 8:47 AM SENIOR APPLICATION SECURITY CONSULTANT Temperature 35.9 C (96.7 F) 05/25/2022 8:47 AM SENIOR APPLICATION SECURITY CONSULTANT Respiratory Rate - - Oxygen Saturation - - Inhaled Oxygen Concentration - - Weight 60.3 kg (133 lb) 05/25/2022 8:47 AM SENIOR APPLICATION SECURITY CONSULTANT Height 162.6 cm (5' 4) 05/25/2022 8:47 AM SENIOR APPLICATION SECURITY CONSULTANT Body Mass Index 22.83 05/25/2022 8:47 AM SENIOR APPLICATION SECURITY CONSULTANT Plan of Treatment Health Maintenance Due Date Last Done Comments Influenza Vaccine (#1) 2025 2, 03/07/2021, 02/21/2020, Additional history exists Pneumococcal PPSV23/PCV13 65 + Years / High and Highest Risk Completed 04/21/2017, 04/21/2016 Insurance [employer]ARE Care Teams Performance Improvement Consultant Relationship Specialty Start Date End Date Joel Polanco MD [address] [place] [address] PCP - General Family Medicine 11/09/18
--- OUTSIDE RECORDS SUMMARY | 2025-04-27 14:12 | XMS_ITS | Clinical Summary ---
Author Organization [facility] Address [address] [place] [address] Care Team Providers Care Materials Handler Name Role Phone MansiHumphrey osorio Primary Care Provider [phone] Nuzhat Savage MD Unavailable [phone] Fany Kaye MD PhD Unavailable [phone] Anuj Altman [facility] Unavailable Unavaila Rosemarie Villa RN Unavailable [...] tablet (100 mg total) by mouth daily Active potassium chloride ER 10 mEq CR [...] minutes prior to infusion. 025 2025 Active inFLIXimab-abda 500 mg in sodium chloride 0.9% [...] 250mL/hr for remainder (138mL) 025 2025 Active propranolol LA (INDERAL LA) 60 mg [...] 6: 250mL/hr for remainder (138mL) 250 mL 04/12/20 25 11:59 PM CASHIER GREETER 025 2025 Active sodium chloride 0.9% flush [...] 6: 250mL/hr for remainder (138mL) 1250 mL 04/12/20 25 11:59 PM CASHIER GREETER 025 2025 Active loperamide (Anti-DiarrheaL, loperamide,) 2 mg [...] EC (ENTOCORT EC) 3 mg 24 hr capsuleIndicatio ns:Crohn's disease of both small and large intestine with intestinal obstruction (HCC) Take 1 capsule (3 mg total) by mouth every morning 90 capsule 025 2025 Active diphenoxylate-at ropine (LOMOTIL) 2.5-0.025 mg per tabletIndication s:Ulcerative pancolitis with other complication TAKE 2 TABLETS BY MOUTH 4 TIMES DAILY NEEDED FOR DIARRHEA 240 tablet Active cefdinir (OMNICEF) 300 mg capsuleIndicatio ns:Abdominal/Pel willie Infection Take 1 capsule by mouth twice daily 180 capsule 2 Active carbidopa-levodo pa (SINEMET) 25-250 mg per tablet Take 1 tablet by mouth 3 (three) times a day 270 tablet 3 025 2025 Active cefdinir (OMNICEF) 300 mg capsuleIndicatio ns:Abdominal/Pel willie Infection Take 1 capsule by mouth twice daily 180 capsule 1 025 2024 Discontinued carbidopa-levodo pa (SINEMET) 25-100 mg per tabletIndication [...] levodopa as tolerated. 105 tablet 025 2024 Discontinued(R eorder) carbidopa-levodo pa (SINEMET) 25-100 mg per tabletIndication s:Parkinsonism 2 tablets 3 times a day 540 tablet 9 025 2024 Discontinued(P atient Reported) Active Problems Problem Noted Date Diagnosed Date Current mild episode of lali r depressive disorder without prior episode 03/26/2025 Follow-up examination follow ing treatment with high-risk medication 03/24/2025 Assessment & Plan (03/24/2025 7:45 AM CDT): The patient is encouraged to stay up-to-date with his vaccinations and continue close follow-up with his care team for other healthcare needs. Weight loss, unintentional 12/19/2024 Dilation of biliary tract 12/19/2024 Assessment & Plan (03/24/2025 7:43 AM CDT): Happily there was no obvious mass on EUS Unintentional weight loss 06/26/2022 Assessment & Plan (03/24/2025 7:47 AM CDT): Unfortunately the patient's weight has continued to drop. We will see if consuming smaller meals throughout the day his superior. They were advised to try and incorporate more calories every opportunity the that is willing to eat. We will also give him a trial of budesonide 3 mg daily. In 2022 we had checked various stool studies and he has some excess fat in his stool but did not improve with Creon or bile salt sequestrant Small bowel obstruction 11/04/2021 Assessment & Plan (03/24/2025 7:42 AM CDT): The patient's scope in scan did not show an obstruction that he does have dilation of the afferent limb. The patient eats a very large breakfast and we question if this may wind up scheduling in this dilated area, cause his abdominal pain and then finally reached the pouch where he can eliminate it. He may have more success if he eats smaller portions but scattered through the day so he is getting at least as many calories if not more but there is no real opportunity for 2 accumulate in this area as we feel he probably finds the discomfort so offputting that he he is avoiding further food. Restless legs syndrome 06/25/2020 Primary open-angle glaucoma 01/30/2019 Pouchitis 05/16/2018 Assessment & Plan (03/24/2025 7:43 AM CDT): Continue cefdinir and infliximab. We will have our staff refill his Lomotil. Ulcerative colitis 05/16/2018 Assessment & Plan (03/24/2025 7:40 AM CDT): The patient's last pouchoscopy this July had looks substantially better with only 3 ulcers remaining in with the pouch. His imaging at the same time still showed a long segment of hyperemia in the afferent limb as well as some dilation. His pouchoscopy did not show any clear stricture which we would suggest perhaps more of a dysmotility in the afferent limb. We would like to check his infliximab trough level with his next infusion. We would like to give him a trial of budesonide for the next couple months to see if this helps with his GI symptoms and weight loss. We will have him take only 1 capsule. Stenosis of lumbosacral spine 12/07/2016 Lumbosacral radiculopathy 12/07/2016 Degeneration of intervertebral disc of lumbar re gion 12/07/2016 Essential (primary) hypertension 06/18/2014 Nephrolithiasis 10/23/2010 Parkinson's disease 03/08/2006 Assessment & Plan (03/26/2025 2:08 PM CDT): Mr. Angel Antoine is a 84 y.o. male, who presents for follow-up for PD and RLS. He is well controlled since the last visit. Levodopa has helped with tremor and balance. He only notices the symptoms in the evening and that is why he takes the medications after 4 pm. He does not have side effects or dyskinesias. He is independent for ADLs. He continues to think propranolol helps with the tremor. RLS is well controlled with gabapentin without side effects. His mood is off due to an upcoming move to an independent living facility. He is on mirtazapine. His UPDRS stable compared to the last visit. Overall, he is stable and does not require changes in the medication. We talked about potentially change the dose of mirtazapine if the mood worsened. Plan: Continue carbidopa-levodopa at the same dose. Continue propranolol and gabapentin at the same dose. Continue mirtazapine for the mood at the same dose now. We could consider increasing the dose to 45 mg in the future to help you with the mood changes. Potential medication side effects were discussed during the encounter. Assessment & Plan (01/21/2025 11:09 AM CDT): [...] encounter. Assessment & Plan (07/20/2024 2:42 PM CASHIER GREETER): Mr. Angel Antoine is a 84 y.o. [...] He takes his carbidopa-levodopa TID but at [phone] though he is waking himself up at [...] advise him to take his levodopa at [phone]. If needed we can add a fourth [...] as they wish to receive this at [facility] where he is currently performing PT. I also recommended OT. I encouraged exercise and provided them with access information on [employer]([facility]) channel as well as online speech exercises through the [employer] website. He remains independent for ADLs and RLS historically has been well controlled with gabapentin thus far without side effects. Recommendations: Continue carbidopa-levodopa 25-250 mg at the same dose of 1 tab TID for Parkinson Disease management but change dose schedule to [phone] instead of taking it at [phone] No changes to gabapentin today - remains on 900 mg nightly for RLS Continue PT Add ST and OT referrals Encouraged exercise - [employer]([facility]) access information provided in patient instructions For [...] encounter. Assessment & Plan (04/28/2024 9:28 AM CASHIER GREETER): Mr. Angel Antoine is a 84 y.o. [...] He takes his carbidopa-levodopa TID but at [phone] though he is waking himself up at [...] gained weight with mirtazapine and working with registered nurse ambulatory to increase caloric intake and using boost [...] He is however, interested in returning to 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 He remains independent for ADLs and RLS is well controlled with gabapentin thus far without side effects. He is eager to gain more weight which has been a struggle due to his ongoing underlying bowel disease and decreased or variable appetite. He has implemented the recommendations from the registered nurse ambulatory (08/06/23) (higher calorie nutritional supplements, GI friendly supplements to see if helps with absorption, and adding scheduled snacks that include protein and carbohydrates). He will continue following with CHARLEY JENSEN/Dr. Kaye for his bowel disease. Although there [...] total of 900 mg) Referral back to [facility] Increase Mirtazapine to 30 mg (from 15 mg) to increase appetite as previously discussed by Dr. Kaye Follow-up as scheduled with Dr. Espinosa 05/08/24 and me 6 months after that Potential medication side [...] gabapentin at the same dose. Referral to [facility]. Potential medication side effects were discussed during the encounter. Assessment & Plan (08/04/2022 11:58 AM CASHIER GREETER): Mr. Angel Antoine is a 82 y.o. [...] encounter. Assessment & Plan (07/04/2021 12:58 PM CASHIER GREETER): Mr. Angel Antoine is a 81 y.o. [...] encounter. Assessment & Plan (06/25/2020 1:49 PM CASHIER GREETER): Mr. Angel Antoine is a 80 y.o. [...] Encounters Date Type Department Care Team Description 04/25/2025 Telephone [facility] Movement Disorders [facility] [address] [address] Jie Echavarria MD 04/23/2025 Telephone [facility] Movement Disorders [address] [place] [phone] Jie Echavarria MD 04/12/2025 11:40 AM CASHIER GREETER - 04/12/2025 11:59 PM CASHIER GREETER Hospital Encounter [facility] [address] [place] [address] Discharge Disposition: Discharge to home or self care 04/12/2025 11:00 AM CASHIER GREETER Home Care Visit [facility] Home Infusion Therapy [address] [place] [address] Rosemarie Randle RN [place] [facility] [address] ROUT[address] 04/11/2025 Telephone [facility] Gastroenterology [address] [place] [phone] Mirna Can, JOSE ALFREDO Progress report - budesonide 9 mg daily 04/09/2025 Home Infusion [facility] Home Infusion Therapy [address] [place] [address] Anuj Altman, [facility] 04/04/2025 Plan of Care Documentation [facility] Home Infusion Therapy [address] [place] [address] 04/03/2025 Telephone [facility] G[facility]ology [address] [place] [phone] Mirna Can RN Progress report - budesonide 03/26/2025 12:30 PM CDT Office Visit [facility] Movement Disorders [address] [address] Jie Echavarria MD Parkinson's disease with dyskinesia without fluctuating manifestations (HCC) (Primary Dx); Restless legs syndrome; Current mild episode of major depressive disorder without prior episode 03/26/2025 Documentation [facility] [address] [place] [address] [place] [address] Mirna Can RN IFX level due 03/23/2025 11:00 AM CDT Office Visit [facility] [address] [place] [address] [place] [address] Rosana Alfredo, LARRY Crohn's disease of both small and large intestine with intestinal obstruction (HCC) (Primary Dx); Ulcerative pancolitis with other complication; Small bowel obstruction (HCC); Pouchitis (HCC); Unintentional weight loss; Dilation of biliary tract; Follow-up examination following treatment with high-risk medication 03/21/2025 Home Infusion [facility] Home Infusion Therapy [address] [place] [address] Anuj Altman, [facility] 03/16/2025 Telephone [facility] Gastroenter[facility] [address] [place] [address] [place] [address] Kinsey Mcclellan, [facility] 03/01/2025 11:00 AM CDT Home Care Visit [facility] Home Infusion Therapy [address] [place] [address] Rosemarie Randle RN [place] [facility] [address] ROUT[address] 02/20/2025 Home Infusion [facility] [address] [place] [address] Anuj Altman, [facility] 02/16/2025 Home Infusion [facility] Home Infusion Therapy [address] [place] [address] Norberto Crawford, [facility] from Last 3 Months Immunizations Immunization Administration Dates Next Due Influenza, Trivalent, Adjuva nted, Intramuscular 03/02/2019 Influenza, Trivalent, High D ose, Split, Preservative Free, Intramuscular 02/20/2018 Pneumococcal Conjugate PCV 13 04/21/2016 Pneumococcal Polysaccharide PPV23 04/21/2017 ZOSTER Recombinant 10/10/2018,05/17/2018, 018 Surgical History Surgery Date Site/Laterality Comments CHOLECYSTECTOMY TOTAL SHOULDER REPLACEMENT 06/07/2014 - 06/06/2015 Right GA INJ LUMBAR/SACRAL,W/WO CNTRST PARASTOMAL HERNIA REPAIR 06/07/2013 [...] on file Legal Sex Male 8:42 PM CASHIER GREETER Gender Identity Male 02/27/2019 7:59 AM CDT Sexual Orientation Not on file 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 Not on angelina e Last Filed Vital Signs Vital Sign Reading Time Taken Comments Blood Pressure 139/67 04/12/2025 2:15 PM CASHIER GREETER Pulse 61 04/12/2025 2:15 PM CASHIER GREETER Temperature 36.9 C (98.5 F) 04/12/2025 2:15 PM CASHIER GREETER Respiratory Rate 16 04/12/2025 2:15 PM CASHIER GREETER Oxygen Saturation 97% 04/12/2025 2:15 PM CASHIER GREETER Inhaled Oxygen Concentration - - Weight 51.3 kg (113 lb) 04/12/2025 11:10 AM CASHIER GREETER Height 152.4 cm (5') 04/12/2025 11:10 AM CASHIER GREETER Body Mass Index 22.07 04/12/2025 11:10 AM CASHIER GREETER Plan of Treatment Health Maintenance Due Date Last Done Comments DTaP/Tdap/Td Vaccine (1 - Tdap) 1951 Well Visit 65+ 2006 Covid-19 Vaccine (2024-2 6 season) 2025 02/23/2022, 02/23/2022, 09/15/2021, Additional history exists Influenza Vaccine (#1) 2025 , 02/23/2022, 03/07/2021, Additional history exists Depression Screening 07/20/2025 07/20/2024 Fall Risk Assessment 12/29/2025 12/29/2024 Pneumococcal vaccine 65+ Completed 017, 03/08/2017, 04/21/2016, Additional history exists Zoster Vaccine Completed 10/10/2018, 05/07, 05/16/2018, Additional history exists Hepatitis B Screening Completed 12/07/2024 Medical Devices Implanted Type Area Marshmallow Machine Worker Device Identifier Shelf Expiration Date Model / Serial / Lot Shoulder Right: Shoulder Insurance [facility] MEDICARE [employer] MEDICARE Advance Directives For more information, please contact: [phone] * Full Code (Latest Code Status on File) Date Activated Date Inactivated Comments 07/17/2024 1:06 PM 07/17/2024 7:45 PM * Full Code Date Activated Date Inactivated Comments 11/04/2021 7:43 AM 11/08/2021 5:34 PM * Full Code Date Activated Date Inactivated Comments 10/31/2021 11:34 AM 10/31/2021 5:32 PM * Full Code Date Activated Date Inactivated Comments 07/22/2018 12:17 PM 07/22/2018 6:13 PM Care Teams Materials Handler Relationship Specialty Start Date End Date Humphrey Elise DO PCP - General Family Medicine 02/02/22 Fany Kaye MD PhD [address] [facility] DIV IM GASTROENTEROLOGY, [address] [address] PCP - Home Infusion Attending Gastroenterology 10/28/24 Nuzhat Savage MD [address] [place] [address] Referring Physician Gastroenterology 01/21/23 Anuj Altman, [facility] Pharmacist Pharmacy 10/30/24 Rosemarie Randle, RN Home Infusion Nursing 11/02/24
--- OUTSIDE RECORDS SUMMARY | 2025-04-27 14:12 | XMS_ITS ---
Author Organization [facility] Address [address] [place] [address] Care Team Providers Care Pressing Machine Tender Name Role Phone MansiHumphrey osorio Primary Care Provider [phone] Nuzhat Savage MD Unavailable [phone] Fany Kaye MD PhD Unavailable [phone] Anuj Altman [facility] Unavailable UnavailRosemarie Carrillo RN Unavailable Unavailable Home Infusion Status:Enrolled (Active) Start date:10/13/2024 Enrollment date:10/13/2024 Related service episodes:[facility] - Renflexis 500 mg IV Every 6 Weeks (Active) Overview Cutover complete. Zarina Rossi RN 10/28/2024 7:55 PM Case Team Name Relationship Phone Rosemarie Randle RN(Responsible Staff) Home Infu tee Nursing Continued Care and Services Coordination
--- OUTSIDE RECORDS SUMMARY | 2025-04-27 14:12 | XMS_ITS | Encounter Summary ---
Author Organization [facility] Address [address] [place] [address] Phone Care Team Providers Care Plant Supervisor Name Role Phone Humphrey Elise DO Primary Care Provider [phone] Nuzhat Savage MD Unavailable [phone] Fany Kaye MD PhD Unavailable [phone] Anuj Altman [facility] Unavailable Unavaila Rosemarie Villa RN Unavailable [...] on file Legal Sex Male 8:42 PM EXTRUDER OPERATOR Gender Identity Male 02/27/2019 7:59 AM CDT Sexual Orientation Not on file 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 Not on file Not [...] on filedocumented in this encounter Care Teams Plant Supervisor Relationship Specialty Start Date End Date Humphrey Elise DO PCP - General Family Medicine 02/02/22 Fany Kaye MD PhD [address] [facility], [address] [address] PCP - Home Infusion Attending Gastroenterology 10/28/24 Nuzhat Savage MD [address] [place] [address] Referring Physician Gastroenterology 01/21/23 Anuj Altman, [facility] Pharmacist Pharmacy 10/30/24 Rosemarie Randle, RN Home Infusion Nursing 11/02/24 documented as of this encounter
--- OUTSIDE RECORDS SUMMARY | 2025-04-27 14:12 | XMS_ITS | Encounter Summary ---
Author Organization [facility] Address [address] [place] [address] Phone Care Team Providers Care Cow Tester Name Role Phone Joel Polanco MD Primary Care Provider [phone] Reason for Visit * Reason Comments Med Refill Encounter Details Date Type Department Care Team (Late st Contact Info) Description 05/23/2021 Refill [facility] Nephrology and Hypertension [address] [facility], [address] [place] [address] Alan Duran MD [address] [facility], SU[address] [facility], [facility] [place] [address] Social History Tobacco Use Types Packs/Day Years [...] you to order refill of hydrochlorothiazide through [facility]/s club Tim Garcia as listed in chart. documented in this encounter Plan of Treatment Not on file documented as of this encounter Visit Diagnoses Not on filedocumented in this encounter Care Teams Cow Tester Relationship Specialty Start Date End Date Joel Polanco MD [address] [place] [address] PCP - General Family Medicine 11/09/18 documented as of this encounter
--- OUTSIDE RECORDS SUMMARY | 2025-04-27 14:12 | XMS_ITS | Encounter Summary ---
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
--- OUTSIDE RECORDS SUMMARY | 2025-04-27 14:12 | XMS_ITS ---
Author Organization [facility] Address [address] [place] [address] Care Team Providers Care Director Of Solutions Architecture Name Role Phone Humphrey Elise DO Primary Care Provider [phone] Nuzhat Savage MD Unavailable [phone] Fany Kaye MD PhD Unavailable [phone] Anuj Altman [facility] Unavailable UnavailRosemarie Carrillo RN Unavailable Unavailable [facility] - Renflexis 500 mg IV Every 6 Weeks Status:Enrolled (Active) Start date:10/13/2024 Enrollment date:10/13/2024 Primary medications:infliximab-abda (Active) Related program episode:Home Infusion (Active) Overview Cutover complete Case Team Name Relationship Phone Rosemarie Randle RN Home Infusion Nursing Anuj Altman [facility](Responsible Staff) Pharma cist Continued Care and Services Coordination This section includes services coordinated for [facility] - Renflexis 500 mg IV Every6 Weeks. Home Medical Care Name Services Phone [facility] Home Infusion Therapy Home Infusion and Inje ction
--- OUTSIDE RECORDS SUMMARY | 2025-04-27 14:12 | XMS_ITS | Clinical Summary ---
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
--- OUTSIDE RECORDS SUMMARY | 2025-04-27 14:12 | XMS_ITS | Clinical Summary ---
Author Organization [facility] Address [facility] [place] [address] Care Team Providers Care Sweep Molder Name Role Phone Humphrey Elise DO Primary Care Provider [phone] Social History Tobacco Use Types Packs/Day Years [...] 75+ series) 2016 COVID-19 Vaccine ( season) 2025 02/25/2023, 02/23/2022, 09/15/2021, Additional history exists Influenza Adult (#1) 2025 03/21/2022, 03/07/2021, 02/21/2020, Additional history exists Pneumococcal Vaccine: 50+ Years Completed 04/21/2017, 03/08/2017, 04/21/2016, Additional history exists Zoster Vaccines Completed 10/11/2018, 05/07, 03/30/2013 Hepatitis A Vaccines Aged Out No long er eligible based on patient's age to complete this topic Meningococcal B Vaccine Aged Out No l onger eligible based on patient's age to complete this topic Meningococcal Vaccine Aged Out No esha medardo eligible based on patient's age to complete this topic RSV Immunizations Under 20 Months Aged Out No longer eligible based on patient's age to complete this topic Insurance [facility] MEDICARE Care Teams Sweep Molder Relationship Specialty Start Date End Date Humphrey Elise DO [address] [facility] [address] [place] [address] PCP - General FAMILY PRACTICE 04/02/23
--- OUTSIDE RECORDS SUMMARY | 2025-04-27 14:12 | XMS_ITS | Encounter Summary ---
Author Organization [facility] Address [address] [place] [address] Phone Care Team Providers Care Business Process Consultant Name Role Phone Humphrey Elise DO Primary Care Provider [phone] Nuzhat Savage MD Unavailable [phone] Fany Kaye MD PhD Unavailable [phone] Anuj Altman [facility] Unavailable Unavaila Rosemarie Villa RN Unavailable Unavailable Reason for Visit * Reason Onset Date Comments Progress report - budesonide 9 mg daily 04/11/20 Encounter Details Date Type Department Care Team (Late st Contact Info) Description 04/11/2025 Telephone 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 I left a detailed VM for a progressreport on budesonide 9 mg. Pt's spouse c/b and report the increase dose of budesonide has help him significantly. ULTANT NURSE ULTANT NURSE documented in this encounter Plan of Treatment Not on file documented as of this encounter Visit Diagnoses Not on filedocumented in this encounter Care Teams Business Process Consultant Relationship Specialty Start Date End Date Humphrey Elise DO PCP - General Family Medicine 02/02/22 Fany Kaye MD PhD [address] [facility] GASTROENTEROLOGY, [address] [address] PCP - Home Infusion Attending Gastroenterology 10/28/24 Nuzhat Savage MD [address] [place] [address] Referring Physician Gastroenterology 01/21/23 Anuj Altman, [facility] Pharmacist Pharmacy 10/30/24 Rosemarie Randle, [facility] Home Infusion Nursing 11/02/24 documented as of this encounter
[2025-04-27 18:19] LABS: Hematocrit 42.6 % (42.0-52.0); Hemoglobin 13.5 g/dL (14.0-18.0); Immature Granulocyte Percent A 0.3 % (0-0.5); Lymphocytes Absolute Auto 2.23 K/mm3 (0.9-3.2); Mean Corpuscular HGB Conc 31.7 g/dl (32-36); Mean Corpuscular Hemoglobin 28.1 pg (26-34); Mean Corpuscular Volume 88.6 fl (80-100); Nucleated Red Blood Cells Absolute Auto 0.000 K/mm3 (0.0-0.012); Nucleated Red Blood Cells Perc 0.0 % (0.0-0.2); Platelet Count Result 238 k/mm3 (150-375); Red Blood Count 4.81 M/mm3 (4.6-6.20); White Blood Count 8.8 K/mm3 (4.5-10.0)
[2025-04-27 18:35] LABS: Alanine Aminotransferase 34 U/L (6-50); Albumin Level 3.9 g/dL (3.5-5.1); Alkaline Phosphatase 89 U/L (38-126); Anion Gap 5 mmol/L (4-12); Aspartate Amino Transferase 54 U/L (17-59); Bilirubin,Total 0.9 mg/dL (0.2-1.3); Blood Urea Nitrogen 33 mg/dL (9-20); Calcium 9.2 mg/dL (8.4-10.2); Carbon Dioxide 31 mmol/L (22-30); Chloride 99 mmol/L (98-107); Estimated Glomerular Filt Rate 55; Glucose 86 mg/dL (65-110); Potassium 4.0 mmol/L (3.4-5.0); Sodium 135 mmol/L (137-145); Total Protein 7.9 g/dL (6.3-8.2)
[2025-04-27 19:12] LABS: Prostate Specific Antigen 1.8 ng/mL (< OR = 4.0); Thyroid Stimulating Hormone 1.790 uIU/mL (0.465-4.680)
== END 2025-04-27 14:10 | disposition home or self-care (01) ==
PROVIDERS: PCP Nurse Practitioner; Visit Provider Nurse Practitioner
DX: Z12.5 Encounter for screening for malignant neoplasm of prostate (principal); R63.4 Abnormal weight loss; I10 Essential (primary) hypertension
CPT/HCPCS: 36415; 80053; 84153; 84443; 85025; G0103

== ENCOUNTER 2025-05-04 11:19 | Emergency (ER) | payer MEDICARE, SELFPAY ==
[2025-05-04 11:46] VITALS: BP 131/79; PULSE 63; RESP 18; TEMP 36.3; O2SAT 100
--- NOTE | 2025-05-04 11:52 | ED.SKABFB ---
HPI - Skin/Abscess/Foreign Bdy General Chief complaint: Extremity Problem,Nontraumatic Stated complaint: sore knuckle Time Seen by Provider: 05/04/25 11:55 Source: patient Mode of arrival: ambulatory Limitations: no limitations History of Present Illness HPI narrative: Neri is a 85-year-old male patient presenting to the clinic today with complaints of a sore to his right knuckle and to the left 3rd finger. He thinks he may have been bitten by an insect. Denies any fevers, chills, body aches. Denies any pain over the wound or itching. Wound is not currently draining. States it started as a blister on the left 3rd finger and now has open. Has a blister to the right knuckle of the index finger. Related Data Home Medications ?Medication ?Instructions ?Recorded ?Confirmed ?Last Taken ?Type gabapentin 300 mg capsule 300 mg PO TID 04/17/19 04/25/25 Unknown History carbidopa 25 mg-levodopa 250 mg 1 tablet PO QID 04/21/19 04/25/25 Unknown History tablet finasteride 5 mg tablet 5 mg PO DAILY 04/21/19 04/25/25 Unknown History mirtazapine 15 mg tablet 15 mg PO DAILY 04/21/19 04/25/25 Unknown History propranolol 60 mg tablet 60 mg PO DAILY 09/21/23 04/25/25 Unknown History brinzolamide 1 %-brimonidine 0.2 % 1 drp ophthalmic (eye) BID 03/28/24 04/25/25 Unknown History eye drops,suspension (Simbrinza) multivitamin (Multiple Vitamins 1 tablet PO DAILY 03/28/24 04/25/25 Unknown History tablet) Vitamin D3 06/06/24 04/25/25 Unknown History budesonide 3 mg mg PO 06/06/24 04/25/25 Unknown History capsule,delayed,extended release diphenoxylate-atropine 2.5 tablet 06/06/24 04/25/25 Unknown History mg-0.025 mg tablet prevagen 06/06/24 04/25/25 Unknown History infliximab-dyyb 100 mg intravenous IV 08/23/24 04/25/25 Unknown History solution (Inflectra) Allergies Allergy/AdvReac Type Severity Reaction Status Date / Time Penicillins Allergy Unknown Rash Verified 04/25/25 13:15 Review of Systems Review of Systems: Pertinent positives per HPI. Patient denies any fever, chills, rash, headache, visual changes, dizziness, cough, runny nose, sore throat, shortness of breath, chest pain, palpitations, nausea, vomiting, diarrhea, constipation, abdominal pain, or any urinary issues. [facility] Past Medical History Medical History SBO (small bowel obstruction) Degenerative joint disease of knee Skin cancer Eczema Anemia BPH (benign prostatic hyperplasia) Parkinsons Psoriasis Sleep disorder Arthritis HLD (hyperlipidemia) HTN (hypertension) Kidney stones Ulcerative colitis Right knee pain Surgical History Surgical History History of lithotripsy History of appendectomy History of colon resection Family History Family History Mother Hypertension Grandparent Acute myocardial infarction, Onset Age: 90 Cerebrovascular accident, Onset Age: 85 Carcinoma of colon Father Family history unknown, Onset Age: 91 Social History Social History Smoking status: Never smoker Second hand tobacco smoke exposure: No Alcohol intake: never Substance use: never Substance use type: does not use Lack of Transportation: No Lack of Food: Never True Current Housing: I Have Housing Concerned About Future Housing: No Difficulty Paying Gas/Electric Bills: No Difficulty Paying for Meds: No Currently Unemployed: No Education: High School Diploma/GED Difficulty w/ Childcare or Family Care: No Occupation/Education: retired Gender identity (if verbalized by the patient): Male Comments At the time of my signature, I reviewed and agree with the nursing past medical, surgical, social, and family history. There is no relevant family history pertinent to the patient complaint. Exam Narrative: General: Well-developed, well nourished, in no apparent distress Head: Normocephalic, atraumatic. Cardio: Regular rate and rhythm, s1 and s2 normal, no murmur appreciated. Resp: Clear to auscultation bilaterally, no rhonchi, rales, wheezing or rubs. Integumentary: [place], warm, and dry, blister lesion measuring 0.5 x 1 cm to the right dorsal index finger-MCP joint, open blister measuring 0.5 x 0.5 cm to the right 3rd finger over the IP joint-no drainage with mild redness, no induration Course Course Emergency Course: Portions of this record may have been created with voice recognition software. Level of Care: Express Care Visit Vital Signs Vital signs: Vital Signs Temperature 36.3 C L 05/04/25 11:46 Pulse Rate 63 05/04/25 11:46 Respiratory Rate 18 05/04/25 11:46 Blood Pressure 131/79 05/04/25 11:46 Pulse Oximetry 100 05/04/25 11:46 Temperature 36.3 C L 05/04/25 11:46 Pulse Rate 63 05/04/25 11:46 Respiratory Rate 18 05/04/25 11:46 Blood Pressure 131/79 05/04/25 11:46 Pulse Oximetry 100 05/04/25 11:46 Vital signs reviewed MDM - Skin/Abscess/Foreign Bdy MDM Narrative Medical decision making narrative: At the time of visit patient is resting comfortably on the exam table. Patient appears to be nontoxic. Complaints of a sore to his left knuckle and to the left 3rd finger. He thinks he may have been bitten by an insect. Denies any fevers, chills, body aches. Denies any pain over the wound or itching. Wound is not currently draining. States it started as a blister on the left 3rd finger and now has open. Has a blister to the left knuckle of the index finger. Blister lesion measuring 0.5 x 1 cm to the right dorsal index finger-MCP joint, open blister measuring 0.5 x 0.5 cm to the right 3rd finger over the IP joint-no drainage with mild redness, no induration Plan: I suspect patient has open wound/blister to the right hand. Prescription for mupirocin cream was sent to the pharmacy to cover for or secondary infection. Supportive measures were discussed with the patient and they voiced understanding discharge instructions and agrees to treatment plan. Return precautions reviewed Differential Diagnosis Differential diagnosis: Likely abscess of skin or subcutaneous tissue, viral exanthem, dermatophytosis, urticaria, herpes zoster, allergic reaction to drug, cellulitis, eczema, insect bites, impetigo, contact dermatitis and other (Blisters/open wound) Discharge Plan Discharge Clinical Impression: Skin sore, Blister Patient Disposition: Home Condition: Stable Instructions: Antibiotic Form, Acute Wounds (ED) Additional Instructions: Do not pop the blister May apply mupirocin cream to the open wound May take Tylenol/Motrin as needed for pain Follow-up with your PCP in 3 days for wound check Patient Language: Japanese Prescriptions: New mupirocin [Centany] 2 % ointment 1 applic topical BID Qty: 22 0RF No Action diphenoxylate-atropine 2.5-0.025 mg tablet budesonide 3 mg capsule,delayed,extend.release PO Vitamin D3 prevagen gabapentin 300 mg capsule 300 mg PO TID multivitamin [Multiple Vitamins] Tablet 1 tablet PO DAILY carbidopa-levodopa 25-250 mg tablet 1 tablet PO QID mirtazapine 15 mg tablet 15 mg PO DAILY finasteride 5 mg tablet 5 mg PO DAILY Simbrinza 1-0.2 % drops,suspension 1 drp EACH EYE BID propranolol 60 mg tablet 60 mg PO DAILY Inflectra 100 mg recon soln IV Patient Comments: Per pt - GI managing for UC allopurinol 100 mg tablet 100 mg PO DAILY Qty: 90 3RF hydrochlorothiazide 25 mg tablet See Rx Instructions .ROUTE .COMPLEX Qty: 90 3RF Dose Instruction: Take 1 tablet by mouth once daily Rx Instructions: Take 1 tablet by mouth once daily tamsulosin 0.4 mg capsule See Rx Instructions .ROUTE .COMPLEX Qty: 90 1RF Dose Instruction: TAKE 1 CAPSULE BY MOUTH EVERY DAY 1/2 HOUR FOLLOWING THE SAME MEAL EACH DAY Rx Instructions: TAKE 1 CAPSULE BY MOUTH EVERY DAY 1/2 HOUR FOLLOWING THE SAME MEAL EACH DAY potassium citrate 10 mEq (1,080 mg) tablet extended release 10 meq PO .bid with meal Qty: 180 3RF Follow-up/Referrals: Renzo Piper DO [Primary Care Provider, Internal Medicine] Time of Disposition: 11:54 Quality NIHSS Nursing Documentation ED NIHSS nursing documentation: reviewed/agree
== END 2025-05-04 12:01 | disposition home or self-care (01) ==
PROVIDERS: Emergency Provider Nurse Practitioner Family; PCP Internal Medicine
DX: L98.9 Disorder of the skin and subcutaneous tissue, unspecified (principal); S60.420A Blister (nonthermal) of right index finger, initial encounter; S60.422A Blister (nonthermal) of right middle finger, initial encounter; X58.XXXA Exposure to other specified factors, initial encounter; N40.0 Benign prostatic hyperplasia without lower urinary tract symptoms; G20.A1 Parkinson's disease without dyskinesia, without mention of fluctuations; L40.9 Psoriasis, unspecified; I10 Essential (primary) hypertension; E78.5 Hyperlipidemia, unspecified; M19.90 Unspecified osteoarthritis, unspecified site; Z85.828 Personal history of other malignant neoplasm of skin
CPT/HCPCS: 99213; G0463